=== PATIENT | female | born 1980 | race Caucasian/White ===

== ENCOUNTER 2020-05-09 11:18 | Outpatient (CLI) | payer OTHER, SELFPAY ==
--- NOTE | ~2020-05-09 | XR_ITS ---
EXAMINATION: XR wrist RT min 3V EXAM DATE: 05/09/2020 11:42 INDICATION: No known recent injury provided at this time. Pain of the right wrist. TECHNIQUE: Right wrist frontal, frontal with ulnar deviation, oblique and lateral projections obtain ed and reviewed. There is no prior study for comparison. FINDINGS: Right wrist scapholunate joint space is maintained. There are no acute fractures or disloca tions identified. There is no subcutaneous gas. The soft tissue is unremarkable. There are no rad iopaque foreign bodies. IMPRESSION: 1. Unremarkable XR wrist RT min 3V exam. Reviewed, dictated and finalized at location A. ROLLING COORDINATOR
== END 2020-05-09 11:19 | disposition home or self-care (01) ==
PROVIDERS: PCP Nurse Practitioner Family; Visit Provider Nurse Practitioner Family
DX: M25.539 Pain in unspecified wrist (principal)
CPT/HCPCS: 73110

== ENCOUNTER 2023-05-01 09:51 | Outpatient (CLI) | payer BC, SELFPAY ==
[2023-05-01 11:16] LABS: Basophils Percent Auto 0.4 % (0.2-1.2); Eosinophils Absolute Auto 0.1 K/mm3 (0-0.3); Hematocrit 43.7 % (37.0-47.0); Hemoglobin 14.1 g/dL (12.0-15.0); Immature Granulocyte Absolute 0.05 K/mm3 (0.00-0.031); Immature Granulocyte Percent A 0.5 % (0-0.5); Lymphocytes Absolute Auto 1.58 K/mm3 (0.9-3.2); Lymphocytes Percent Auto 15.5 % (18.3-44.2); Mean Corpuscular HGB Conc 32.3 g/dl (32-36); Mean Corpuscular Hemoglobin 29.9 pg (26-34); Mean Corpuscular Volume 92.8 fl (80-100); Mean Platelet Volume 10.8 fl (7.4-10.4); Monocytes Absolute Auto 0.6 K/mm3 (0.1-0.6); Monocytes Percent Auto 6.1 % (2.6-8.5); Neutrophils Absolute Auto 7.8 K/mm3 (1.3-6.7); Neutrophils Percent Auto 76.5 % (45.5-73.1); Platelet Count Result 340 k/mm3 (150-375); Red Blood Count 4.71 M/mm3 (4.2-5.4); Red Cell Distribution Width 12.1 % (11.5-14.5); White Blood Count 10.2 K/mm3 (4.5-10.0)
[2023-05-01 11:27] LABS: Glucose 1 Hour PP 50gm Dose 296 mg/dL
[2023-05-01 11:49] LABS: Hemoglobin A1C 9.4 % (<5.7)
[2023-05-01 12:06] LABS: HIV 1/2 Ab P24 Ag Result Negative (Negative)
[2023-05-01 12:21] LABS: Hepatitis B Surface Antigen Negative (Negative); Rubella IgG Antibody 15.6 IU/ML
[2023-05-02 12:59] LABS: Rapid Plasma Reagin Non-Reactive (NonReactive)
[2023-05-03 18:03] LABS: CMV IgG Antibody <0.60 U/mL (<0.60)
== END 2023-05-01 09:52 | disposition home or self-care (01) ==
LOC: ANHLAB 09:52
PROVIDERS: PCP Nurse Practitioner Family; Visit Provider Obstetrics & Gynecology
DX: R73.09 Other abnormal glucose (principal); E66.9 Obesity, unspecified; N94.89 Other specified conditions associated with female genital organs and menstrual cycle
CPT/HCPCS: 36415; 82947; 83036; 84443; 84702; 85025; 86592; 86644; 86703; 86747; 86762; 86787; 86900; 86901; 87086; 87340; G0432

== ENCOUNTER 2023-05-31 13:39 | Outpatient (CLI) | payer BC, SELFPAY ==
[2023-05-31 14:38] LABS: Alanine Aminotransferase 20 U/L (6-35); Alkaline Phosphatase 48 U/L (38-126); Anion Gap 7 mmol/L (8-16); Aspartate Amino Transferase 25 U/L (14-36); Bilirubin,Total 0.3 mg/dL (0.2-1.3); Blood Urea Nitrogen 11 mg/dL (7-17); Calcium 9.1 mg/dL (8.4-10.2); Carbon Dioxide 22 mmol/L (22-30); Chloride 103 mmol/L (98-107); Estimated Glomerular Filt Rate > 60; Glucose 130 mg/dL (65-110); Potassium 3.9 mmol/L (3.4-5.0); Sodium 132 mmol/L (137-145)
[2023-05-31 15:00] LABS: Creatinine Urine 97.7 mg/dL
[2023-05-31 15:09] LABS: Total Protein Urine Random < 5 mg/dL
== END 2023-05-31 13:40 | disposition home or self-care (01) ==
LOC: ANHLAB 13:41
PROVIDERS: PCP Nurse Practitioner Family; Visit Provider Obstetrics & Gynecology
DX: O24.919 Unspecified diabetes mellitus in pregnancy, unspecified trimester (principal); Z3A.00 Weeks of gestation of pregnancy not specified
CPT/HCPCS: 36415; 80053; 81050; 82570; 84156; 84443

== ENCOUNTER 2023-07-08 07:29 | Outpatient (CLI) | payer BC, SELFPAY ==
[2023-07-08 12:19] LABS: Total Volume 24 Hour Urine 2150 ml
[2023-07-08 12:30] LABS: Total Protein Urine 24 Hr 193 mg/24hr (28-141); Total Protein Urine Random 9 mg/dL
[2023-07-08 12:33] LABS: Creatinine 24 Hour Urine 1.5 gm/24 (0.8-1.8); Creatinine Urine 72.1 mg/dL
== END 2023-07-08 07:30 | disposition home or self-care (01) ==
LOC: ANHLAB 07:30
PROVIDERS: PCP Nurse Practitioner Family; Visit Provider Obstetrics & Gynecology
DX: Z34.90 Encounter for supervision of normal pregnancy, unspecified, unspecified trimester (principal)
CPT/HCPCS: 81050; 82570; 84156

== ENCOUNTER 2023-08-23 07:21 | Outpatient (CLI) | payer BC, SELFPAY ==
[2023-08-23 08:03] LABS: Hematocrit 34.8 % (37.0-47.0); Hemoglobin 11.3 g/dL (12.0-15.0); Mean Corpuscular HGB Conc 32.5 g/dl (32-36); Mean Corpuscular Hemoglobin 29.9 pg (26-34); Mean Corpuscular Volume 92.1 fl (80-100); Mean Platelet Volume 9.9 fl (7.4-10.4); Platelet Count Result 331 k/mm3 (150-375); Red Blood Count 3.78 M/mm3 (4.2-5.4); Red Cell Distribution Width 12.6 % (11.5-14.5); White Blood Count 11.5 K/mm3 (4.5-10.0)
[2023-08-23 09:12] LABS: HIV 1/2 Ab P24 Ag Result Negative (Negative)
[2023-08-23 17:02] LABS: Rapid Plasma Reagin Non-Reactive (NonReactive)
== END 2023-08-23 07:22 | disposition home or self-care (01) ==
LOC: ANHLAB 07:22
PROVIDERS: PCP Nurse Practitioner Family; Visit Provider Student in an Organized Health Care Education/Training Program
DX: O09.529 Supervision of elderly multigravida, unspecified trimester (principal)
CPT/HCPCS: 36415; 85027; 86592; 86703; G0432

== ENCOUNTER 2023-10-18 08:57 | Outpatient (CLI) | payer BC, SELFPAY ==
[2023-10-18 20:12] LABS: Hemoglobin A1C 5.3 % (<5.7)
== END 2023-10-18 08:58 | disposition home or self-care (01) ==
LOC: ANHLAB 08:59
PROVIDERS: PCP Nurse Practitioner Family; Referring Provider Obstetrics & Gynecology; Visit Provider Obstetrics & Gynecology
DX: O24.919 Unspecified diabetes mellitus in pregnancy, unspecified trimester (principal); Z3A.00 Weeks of gestation of pregnancy not specified
CPT/HCPCS: 36415; 83036; 86850

== ENCOUNTER 2023-10-24 16:08 | Outpatient (RCR) | payer BC, SELFPAY ==
[2023-09-23 08:56] VITALS: BP 114/60; PULSE 91
[2023-09-26 16:53] VITALS: BP 111/63; PULSE 101
[2023-09-30 08:02] VITALS: BP 100/54; PULSE 86
[2023-10-03 17:03] VITALS: BP 118/51; PULSE 92
[2023-10-07 08:23] VITALS: BP 110/56; PULSE 87
[2023-10-10 16:51] VITALS: BP 116/62; PULSE 95
[2023-10-14 09:06] VITALS: BP 113/61; PULSE 97
[2023-10-17 17:02] VITALS: BP 115/58; PULSE 95
[2023-10-21 08:30] VITALS: BP 120/56; PULSE 95
--- NOTE | ~2023-10-24 | US_ITS ---
EXAMINATION: US OB BPP wo non-stress DATE: 09/30/2023 08:56 INDICATION: Gestational diabetes TECHNIQUE: Real-time pelvic ultrasound was performed. The interpreting radiologist was not present fo r the study. COMPARISON: None. FINDINGS: There is a single living fetus in vertex presentation. The placenta is anterior. cardiac activ ity and movement are demonstrated. heart rate is 152 beats per minute (bpm). Biophysical profile performed by the technologist: breathing (30 sec sustained breathing in 30 minutes): 2 out of 2 movement (3 gross body movements in 30 minutes): 2 out of 2 tone (one episode of eeqcclz-uyulizctt-ydhksuk limb movement): 2 out of 2 Amniotic fluid pocket (2 cm): 2 out of 2 Total score: 8 out of 8 IMPRESSION: 1. Single living intrauterine in vertex presentation with heart rate of 152 bpm. 2. Normal placenta. 3. Biophysical profile 8 out of 8. Reviewed, dictated and finalized at location B.
--- NOTE | ~2023-10-24 | US_ITS ---
EXAMINATION: US OB BPP wo non-stress DATE: 10/17/2023 17:08 INDICATION: Gestational diabetes. Third trimester. TECHNIQUE: Real-time pelvic ultrasound was performed. COMPARISON: Ultrasound 10/14/2023 FINDINGS: There is a single living fetus in vertex presentation. The placenta is anterior. heart rate is 157 beats per minute (bpm). The deepest vertical pocket is 4.9 cm, which is normal. Biophysical profile performed by the technologist: breathing (30 sec sustained breathing in 30 minutes): 2 out of 2 movement (3 gross body movements in 30 minutes): 2 out of 2 tone (one episode of xepivdj-wjodhrbsi-gbsreij limb movement): 2 out of 2 Amniotic fluid pocket (2 cm): 2 out of 2 Total score: 8 out of 8 IMPRESSION: 1. Single living fetus in vertex presentation. 2. Biophysical profile 8 out of 8. Reviewed, dictated and finalized at location A.
--- NOTE | ~2023-10-24 | US_ITS ---
EXAMINATION: US OB BPP wo non-stress DATE: 09/23/2023 09:12 INDICATION: Maternal gestational diabetes during third trimester TECHNIQUE: Real-time pelvic ultrasound was performed. The interpreting radiologist was not present fo r the study. COMPARISON: None. FINDINGS: There is a single living fetus in vertex presentation. The placenta is anterior. heart rate is 173 beats per minute (bpm). Biophysical profile performed by the technologist: breathing (30 sec sustained breathing in 30 minutes): 2 out of 2 movement (3 gross body movements in 30 minutes): 2 out of 2 tone (one episode of xvniyzk-jhbygtvmx-owtkwjj limb movement): 2 out of 2 Amniotic fluid pocket (2 cm): 2 out of 2 Total score: 8 out of 8 IMPRESSION: 1. Single living fetus in vertex presentation with heart rate of 173 bpm. 2. Biophysical profile 8 out of 8. Reviewed, dictated and finalized at location A.
--- NOTE | ~2023-10-24 | US_ITS ---
EXAMINATION: US OB BPP wo non-stress DATE: 10/07/2023 08:26 INDICATION: Gestational diabetes. Third trimester. TECHNIQUE: Real-time pelvic ultrasound was performed. COMPARISON: Ultrasound 09/30/2023 FINDINGS: There is a single living fetus in vertex presentation. The placenta is anterior. heart rate is 134 beats per minute (bpm). The deepest vertical pocket is 5.2 cm, which is normal. Biophysical profile performed by the technologist: breathing (30 sec sustained breathing in 30 minutes): 2 out of 2 movement (3 gross body movements in 30 minutes): 2 out of 2 tone (one episode of irxzsva-aycradlxq-fvupggq limb movement): 2 out of 2 Amniotic fluid pocket (2 cm): 2 out of 2 Total score: 8 out of 8 IMPRESSION: 1. Single living fetus in vertex presentation. 2. Biophysical profile 8 out of 8. Reviewed, dictated and finalized at location A.
--- NOTE | ~2023-10-24 | US_ITS ---
EXAMINATION: US OB BPP wo non-stress DATE: 10/21/2023 08:38 INDICATION: Gestational diabetes. Third trimester. TECHNIQUE: Real-time pelvic ultrasound was performed. COMPARISON: Ultrasound 10/17/2023 FINDINGS: There is a single living fetus in vertex presentation. The placenta is anterior. heart rate is 162 beats per minute (bpm). Biophysical profile performed by the technologist: breathing (30 sec sustained breathing in 30 minutes): 2 out of 2 movement (3 gross body movements in 30 minutes): 2 out of 2 tone (one episode of cblvmqh-olxibwvkr-wjfldkp limb movement): 2 out of 2 Amniotic fluid pocket (2 cm): 2 out of 2 Total score: 8 out of 8 IMPRESSION: 1. Single living fetus in vertex presentation. 2. Biophysical profile 8 out of 8. Reviewed, dictated and finalized at location A.
--- NOTE | ~2023-10-24 | US_ITS ---
LIMITED OBSTETRIC ULTRASOUND/BIOPHYSICAL PROFILE Ordering provider: Neda Del Toro MD History: . BPP for Type2 DM, AMA . Comparison: None. FINDINGS: PRESENTATION: Vertex. Longitudinal lie. PLACENTAL LOCATION: Anterior. No previa. HEART RATE: 146 bpm (normal is between 110 to 160 bpm). AMNIOTIC FLUID INDEX: Subjectively normal. Largest vertical pocket is 5.7 cm. . OTHER: Maternal ovaries not visualized. SCORE: breathing movements: 2 movements: 0 tone: 2 Amniotic fluid volume: 2 Total: 6 IMPRESSION: biophysical profile is 6 out of 8. Reviewed, dictated and finalized at location A.
[2023-10-24 16:47] VITALS: BP 126/71; PULSE 103
== END 2023-11-04 10:41 | disposition home or self-care (01) ==
LOC: ANHOBOP 16:08
PROVIDERS: PCP Nurse Practitioner Family; Visit Provider Obstetrics & Gynecology
DX: O24.419 Gestational diabetes mellitus in pregnancy, unspecified control (principal); Z3A.32 32 weeks gestation of pregnancy; Z3A.33 33 weeks gestation of pregnancy; Z3A.34 34 weeks gestation of pregnancy; Z3A.35 35 weeks gestation of pregnancy; Z3A.36 36 weeks gestation of pregnancy; Z3A.37 37 weeks gestation of pregnancy
CPT/HCPCS: 59025; 76819

== ENCOUNTER 2023-10-28 05:57 | Inpatient (IN) | payer BC, SELFPAY ==
[2023-10-28] VITALS (159 sets, daily range): BP systolic 67–127; BP diastolic 36–100; PULSE 76–169; TEMP 36.4–37.1; O2SAT 96–100; BMI 37.0
[2023-10-28 06:32] LABS: Basophils Percent Auto 0.2 % (0.2-1.2); Eosinophils Absolute Auto 0.1 K/mm3 (0-0.3); Eosinophils Percent Auto 1.1 % (0-4.4); Hematocrit 32.7 % (37.0-47.0); Hemoglobin 10.7 g/dL (12.0-15.0); Immature Granulocyte Absolute 0.07 K/mm3 (0.00-0.031); Immature Granulocyte Percent A 0.6 % (0-0.5); Lymphocytes Absolute Auto 1.49 K/mm3 (0.9-3.2); Lymphocytes Percent Auto 13.5 % (18.3-44.2); Mean Corpuscular HGB Conc 32.7 g/dl (32-36); Mean Corpuscular Hemoglobin 28.9 pg (26-34); Mean Corpuscular Volume 88.4 fl (80-100); Mean Platelet Volume 10.2 fl (7.4-10.4); Monocytes Percent Auto 8.6 % (2.6-8.5); Neutrophils Absolute Auto 8.4 K/mm3 (1.3-6.7); Platelet Count Result 307 k/mm3 (150-375); Red Cell Distribution Width 13.2 % (11.5-14.5); White Blood Count 11.1 K/mm3 (4.5-10.0)
[2023-10-28] MEDS: LACTATED RINGERS 1,000 ML 125 ML IV CONT ×2 (06:36→14:31)
[2023-10-28] MEDS: AMPICILLIN 2 GM/NS 100 ML 2 GM/100 ML BAG IVPB (06:39)
[2023-10-28] MEDS: OXYTOCIN 30 UNITS/NS 500 ML 30 UNITS/500 ML BAG IV CONT ×2 (06:49→19:16)
[2023-10-28 06:51] LABS: Glucose Point of Care 79 mg/dl (65-105)
[2023-10-28 07:20] LABS: HIV 1/2 Ab P24 Ag Result Negative (Negative)
--- NOTE | 2023-10-28 07:26 | WPDANESEPP ---
Anes - Eval Pre Procedure Procedure: Labor epidural Date/Time: 10/28/23 07:26 Surgeon: Alverto Preop Diagnosis: Pain during labor Pre Op Diagnosis: IOL Patient Data Age: 43 Gender: F Height: Weight: Last Vital Signs Temp 37.0 C 10/28/23 07:00 Pulse 91 10/28/23 07:05 BP 117/63 10/28/23 07:05 Allergies Allergy/AdvReac Type Severity Reaction Status Date / Time No Known Allergies Allergy Verified 10/25/23 08:18 Home Medications Medication Instructions Recorded Confirmed Type famotidine 20 mg tablet (Pepcid) 20 mg PO BID PRN Heartburn 05/09/20 10/28/23 History glucagon 3 mg/actuation nasal 3 mg intranasal ONCE PRN low blood 05/29/23 10/28/23 History spray (Baqsimi) sugar insulin lispro 100 unit/mL 12 unit subcut QACDINNER 06/28/23 10/28/23 History subcutaneous half-unit pen aspirin 81 mg chewable tablet 162 mg PO DAILY 10/03/23 10/28/23 History cholecalciferol (vitamin D3) 25 25 mcg PO HS 10/03/23 10/28/23 History mcg (1,000 unit) tablet (Vitamin D3) insulin glargine-yfgn 100 unit/mL 88 unit subcut BID 10/03/23 10/28/23 History (3 mL) subcutaneous pen (Semglee (insulin glargine-yfgn) Pen) insulin lispro 100 unit/mL 20 unit subcut QACBREAK 10/03/23 10/28/23 History subcutaneous pen insulin lispro 100 unit/mL 20 unit subcut QACLUNCH 10/03/23 10/28/23 History subcutaneous pen vit no.95-ferrous 1 tablet PO HS 10/03/23 10/28/23 History fumarate 28 mg-folic acid 800 mcg tablet () doxylamine succinate 25 mg tablet 25 mg PO HS PRN Sleep 10/28/23 10/28/23 History (Unisom (doxylamine)) Laboratory Tests 10/28/23 10/28/23 06:22 06:31 WBC 11.1 H K/mm3 (4.5-10.0) RBC 3.70 L M/mm3 (4.2-5.4) Hgb 10.7 L g/dL (12.0-15.0) Hct 32.7 L % (37.0-47.0) MCV 88.4 fl (80-100) MCH 28.9 pg (26-34) MCHC 32.7 g/dl (32-36) RDW 13.2 % (11.5-14.5) Plt Count 307 k/mm3 (150-375) MPV 10.2 fl (7.4-10.4) Immature Gran % (Auto) 0.6 H % (0-0.5) Neut % (Auto) 76.0 H % (45.5-73.1) Lymph % (Auto) 13.5 L % (18.3-44.2) [place] % (Auto) 8.6 H % (2.6-8.5) Eos % (Auto) 1.1 % (0-4.4) Baso % (Auto) 0.2 % (0.2-1.2) Lymph # (Auto) 1.49 K/mm3 (0.9-3.2) [place] # (Auto) 1.0 H K/mm3 (0.1-0.6) Eos # (Auto) 0.1 K/mm3 (0-0.3) Baso # (Auto) 0.0 K/mm3 (0.0-0.1) Abs Immat Gran (auto) 0.07 H K/mm3 (0.00-0.031) Absolute Neuts (auto) 8.4 H K/mm3 (1.3-6.7) Absolute Nucleated RBC 0.000 K/mm3 (0.0-0.012) Nucleated RBC % 0.0 % (0.0-0.2) POC Capillary Glucose 79 mg/dl (65-105) RPR Pending HIV 1&2 Ab/P24 Ag 4thGn Negative (Negative) Blood Type A Positive Antibody Screen Pending Patient hx anesthesia problems: none Family hx anesthesia problems: none Results Review: All pre-operative results and documents have been reviewed as part of the pre-operative evaluation. [facility], [facility] Past Medical History Medical History Back pain BMI 35.0-35.9,adult Elevated glucose level Encounter for wellness examination GERD (gastroesophageal reflux disease) Herpes Migraines Nexplanon insertion 01/04/2020 Vitamin D deficiency Wrist pain Family History Family History Father AA (alcohol abuse) Hypertension Mother AA (alcohol abuse) Asthma Grandparent Diabetes mellitus Heart disease Cerebrovascular accident Grandparent Depression Anxiety Social History Social History Smoking status: Never smoker Alcohol intake: never Substance use: never Substance use type: does not use Lack of Transportation: No Lack of Food: Never True Current Housing: I Have Housing
--- NOTE | 2023-10-28 07:31 | LDADM ---
This patient, Abbie lBand, was admitted to Labor/Delivery/Recovery 104 on 10/28/23 at 05:57. Plans for labor, pain management and were discussed with patient. Patient/family oriented to hospital policies and general routines including ID bracelet, bed and alarms, visiting hours, pain management, procedures, bathroom and other care routines, personal items, smoking policy, room service/diet and guest tray routines, security routines, and visiting hours. Patient/Family are encouraged to report perceived risks to care and to ask questions if they do not understand what they are told or what they should do. See OBIX for further documentation.
--- NOTE | 2023-10-28 08:10 | PM.IMHP ---
H&P: HPI History of Present Illness Date/Time: 10/28/23 07:27 Chief Complaint: Medical induction of labor Narrative: Abbie is a 43yo @ 37.4wks admitted for medical induction of labor. She was diagnosed with class B DM in . She has been insulin dependent and has continued to require increasing levels of insulin at every MFM appointment. She has been undergoing twice weekly testing. She reports good movement. No VB or LOF. BS 79 this AM. Her is complicated by: - AMA-- MFM referral; normal FISH on amnio, ASA 162mg - Class B DM -- a1c 9.4 (04/2023) --> 5.3 (10/2023) - Insulin managed by [facility]; glargine 88u BID, Lispro /u TIDAC - testing/growth scans - echo: normal - h/o migraines - GBS positive Review of Systems Constitutional: Constitutional: Denies chills, Denies fever(s) and Denies headache(s) Eyes: Eyes: Denies change in vision ENT: Denies headache(s) Cardiovascular: Cardiovascular: Denies chest pain and Denies dyspnea Respiratory: Respiratory: Denies dyspnea Genitourinary: Genitourinary: Denies abnormal vaginal bleeding and Denies vaginal discharge Neurologic: Denies headache(s) Psychiatric: Psychiatric: Denies anxiety and Denies depression [facility] Past Medical History Medical History Back pain BMI 35.0-35.9,adult Elevated glucose level Encounter for wellness examination GERD (gastroesophageal reflux disease) Herpes Migraines Nexplanon insertion 01/04/2020 Vitamin D deficiency Wrist pain Family History Family History Father AA (alcohol abuse) Hypertension Mother AA (alcohol abuse) Asthma Grandparent Diabetes mellitus Heart disease Cerebrovascular accident Grandparent Depression Anxiety Social History Social History Smoking status: Never smoker Second hand tobacco smoke exposure: No Alcohol intake: never Substance use: never Substance use type: does not use Do You Feel Safe in your Home?: Yes Lack of Transportation: No Lack of Food: Never True Current Housing: I Have Housing Concerned About Future Housing: No Difficulty Paying Gas/Electric Bills: No Difficulty Paying for Meds: No Currently Unemployed: No Education: Associate Degree Difficulty w/ Childcare or Family Care: No Living arrangements: with family Occupation/Education: occupation Gender identity (if verbalized by the patient): Female Sexual Orientation (if Verbalized by the Patient): Straight or Heterosexual Spiritual care concerns: No Meds Home Medications and Allergies Home Medications Medication Instructions Recorded Confirmed Type famotidine 20 mg tablet (Pepcid) 20 mg PO BID PRN Heartburn 05/09/20 10/28/23 History glucagon 3 mg/actuation nasal 3 mg intranasal ONCE PRN low blood 05/29/23 10/28/23 History spray (Baqsimi) sugar insulin lispro 100 unit/mL 12 unit subcut QACDINNER 06/28/23 10/28/23 History subcutaneous half-unit pen aspirin 81 mg chewable tablet 162 mg PO DAILY 10/03/23 10/28/23 History cholecalciferol (vitamin D3) 25 25 mcg PO HS 10/03/23 10/28/23 History mcg (1,000 unit) tablet (Vitamin D3) insulin glargine-yfgn 100 unit/mL 88 unit subcut BID 10/03/23 10/28/23 History (3 mL) subcutaneous pen (Semglee (insulin glargine-yfgn) Pen) insulin lispro 100 unit/mL 20 unit subcut QACBREAK 10/03/23 10/28/23 History subcutaneous pen insulin lispro 100 unit/mL 20 unit subcut QACLUNCH 10/03/23 10/28/23 History subcutaneous pen vit no.95-ferrous 1 tablet PO HS 10/03/23 10/28/23 History fumarate 28 mg-folic acid 800 mcg tablet () doxylamine succinate 25 mg tablet 25 mg PO HS PRN Sleep 10/28/23 10/28/23 History (Unisom (doxylamine)) Allergies Allergy/AdvRea
[2023-10-28] MEDS: INSULIN ASPART (*BKC) 100 UNITS/ML 20 UNITS SUB-Q ×2 (09:28→12:35)
[2023-10-28] MEDS: AMPICILLIN 1 GM/NS 50 ML 1 GM/50 ML BAG IVPB ×3 (10:29→18:24)
[2023-10-28 11:09] LABS: Glucose Point of Care 84 mg/dl (65-105)
--- NOTE | 2023-10-28 11:22 | PM.OBPNLAB ---
Pain Control Date/time seen: 10/28/23 11:22 Pain control: tolerating well Pelvic Exam Dilation (cm): 4 Effacement (%): 50 station: -2 Amniotic membrane status: Ruptured (AROM, clear 1115) Contractions Monitor mode: External Contraction frequency: 2 Contraction pattern: Regular Status status: Category l Assessment and Plan Pitocin rate (mU/min): 12 Plan: continuous present management Comments: TREVOR Mckenna
[2023-10-28 12:02] LABS: Glucose Point of Care 66 mg/dl (65-105)
[2023-10-28 12:22] LABS: Glucose Point of Care 71 mg/dl (65-105)
[2023-10-28 13:06] LABS: Glucose Point of Care 74 mg/dl (65-105)
[2023-10-28] MEDS: DEXTROSE 5%/0.9% SOD CHL 1,000 ML 125 ML IV CONT (13:20)
[2023-10-28 13:23] LABS: Rapid Plasma Reagin Non-Reactive (NonReactive)
[2023-10-28 14:03] LABS: Glucose Point of Care 115 mg/dl (65-105)
[2023-10-28] MEDS: ACETAMINOPHEN 500 MG TABLET 1000 MG PO (14:44)
[2023-10-28 15:02] LABS: Glucose Point of Care 104 mg/dl (65-105)
[2023-10-28 15:59] LABS: Glucose Point of Care 80 mg/dl (65-105)
--- NOTE | 2023-10-28 16:45 | PM.OBPNLAB ---
Pain Control Date/time seen: 10/28/23 16:45 Pain control: epidural Pelvic Exam Dilation (cm): 5 Effacement (%): 80 station: -2 Amniotic membrane status: Ruptured (AROM, clear 1115) Contractions Monitor mode: Internal Contraction frequency: 3 Contraction pattern: Regular Status status: Category l Assessment and Plan Pitocin rate (mU/min): 22 Assessment: induction ongoing Plan: continuous present management Comments: TREVOR Cooper
[2023-10-28] MEDS: LACTATED RINGERS 1,000 ML 999 ML IV CONT (16:52)
[2023-10-28 17:03] LABS: Glucose Point of Care 75 mg/dl (65-105)
[2023-10-28 18:04] LABS: Glucose Point of Care 85 mg/dl (65-105)
[2023-10-28 19:01] LABS: Glucose Point of Care 71 mg/dl (65-105)
[2023-10-28 20:05] LABS: Glucose Point of Care 63 mg/dl (65-105)
[2023-10-28 21:05] LABS: Glucose Point of Care 72 mg/dl (65-105)
[2023-10-28] MEDS: OXYTOCIN 30 UNITS/NS 500 ML 30 UNITS/500 ML BAG 999 UNITS IV CONT (22:30)
--- NOTE | 2023-10-28 22:44 | PM.OBPRVD ---
OB - Vaginal Delivery Note Procedure Delivery date: 10/28/23 Events: Diabetes Mellitus Induction method: Per Pitocin Protocol Delivery augmentation: Rupture of Membranes Delivery monitor: External FHT and Internal Uterine Route of delivery: Laceration Description: None Specimen: Yes (placenta) Quantitative Blood Loss (ml): 400 Anesthesia type: Epidural Disposition: Floor Complications: No immediate complications [place] Baby Date of : 10/28/23 Time of : 22:18 Gestational Age by Date: 37 (.4) gender: Female Weight (pounds): 6 Weight (ounces): 0 presentation: vertex Placenta delivery description: Expressed Cord Vessel Description: 3 Vessels, Nuchal Cord (x2), Reduced and Delayed Cord Clamping score one minute: 9 score five minutes: 9 Narrative: Abbie progressed to complete dilation with strong desire to push. She pushed for approximately 4 contractions with good maternal effort. She delivered head over intact perineum. Nuchal cord x2 was noted and was easily reduced. She easily delivered the 's shoulders and body without complication. The was immediately placed skin to skin and had spontaneous cry after bulb suctioning of her mouth. Delayed cord clamping was performed. The umbilical cord was then doubly clamped and cut. A segment of cord was collected for cord gases. With Pitocin running and gentle downward traction on the cord, the placenta delivered without complication. Bimanual massage was performed and good uterine tone with minimal bleeding was noted. She was examined and no lacerations were noted. Bimanual massage was once again performed and good uterine tone with minimal bleeding was noted. Sponge, lap, instrument, and needle counts were correct at the end the procedure. Mom and baby were left bonding in the birthing suite in stable condition.
[2023-10-28 22:47] LABS: Glucose Point of Care 71 mg/dl (65-105)
[2023-10-28 23:01] LABS: Glucose Point of Care 79 mg/dl (65-105)
[2023-10-28] MEDS: OXYTOCIN 30 UNITS/NS 500 ML 30 UNITS/500 ML BAG 125 UNITS IV CONT (23:05)
[2023-10-29] VITALS (16 sets, daily range): BP systolic 105–123; BP diastolic 50–79; PULSE 71–108; RESP 16–20; TEMP 36.2–36.7; O2SAT 97–99
[2023-10-29 00:08] LABS: Glucose Point of Care 106 mg/dl (65-105)
--- NOTE | 2023-10-29 01:04 | OBPPTRN ---
Patient transferred to post room #281 via wheelchair. Support person present. Oriented to unit, room, information board, rooming in, admission packet and security measures. Patient verbalizes understanding.
[2023-10-29 02:12] LABS: Glucose Point of Care 191 mg/dl (65-105)
[2023-10-29 04:45] LABS: Glucose Point of Care 160 mg/dl (65-105)
--- NOTE | 2023-10-29 06:37 | PM.OBPNVD ---
OB - PN: Subj Subjective Date/time seen: 10/29/23 06:37 Narrative: PPD#1 Abbie reports doing well today. Her bleeding is casing cleaner. Her pain is controlled. She is tolerating regular diet, voiding, passing gas, and ambulating without issues. She is breast feeding. Has been having sugars checked; on the higher side, but had a lot of pizza after delivery. OB - PN: Obj Data Labs 10/29/23 07:46 Labs: Laboratory Results - last 24 hr 10/28/23 10/28/23 10/28/23 06:22 06:31 11:05 WBC 11.1 H RBC 3.70 L Hgb 10.7 L Hct 32.7 L MCV 88.4 MCH 28.9 MCHC 32.7 RDW 13.2 Plt Count 307 MPV 10.2 Immature Gran % (Auto) 0.6 H Neut % (Auto) 76.0 H Lymph % (Auto) 13.5 L [place] % (Auto) 8.6 H Eos % (Auto) 1.1 Baso % (Auto) 0.2 Lymph # (Auto) 1.49 [place] # (Auto) 1.0 H Eos # (Auto) 0.1 Baso # (Auto) 0.0 Abs Immat Gran (auto) 0.07 H Absolute Neuts (auto) 8.4 H Absolute Nucleated RBC 0.000 Nucleated RBC % 0.0 POC Capillary Glucose 79 84 RPR Non-reactive HIV 1&2 Ab/P24 Ag 4thGn Negative Blood Type A Positive Antibody Screen Negative 10/28/23 10/28/23 10/28/23 11:59 12:19 13:03 WBC RBC Hgb Hct MCV MCH MCHC RDW Plt Count MPV Immature Gran % (Auto) Neut % (Auto) Lymph % (Auto) [place] % (Auto) Eos % (Auto) Baso % (Auto) Lymph # (Auto) [place] # (Auto) Eos # (Auto) Baso # (Auto) Abs Immat Gran (auto) Absolute Neuts (auto) Absolute Nucleated RBC Nucleated RBC % POC Capillary Glucose 66 71 74 RPR HIV 1&2 Ab/P24 Ag 4thGn Blood Type Antibody Screen 10/28/23 10/28/23 10/28/23 14:01 14:59 15:57 WBC RBC Hgb Hct MCV MCH MCHC RDW Plt Count MPV Immature Gran % (Auto) Neut % (Auto) Lymph % (Auto) [place] % (Auto) Eos % (Auto) Baso % (Auto) Lymph # (Auto) [place] # (Auto) Eos # (Auto) Baso # (Auto) Abs Immat Gran (auto) Absolute Neuts (auto) Absolute Nucleated RBC Nucleated RBC % POC Capillary Glucose 115 H 104 80 RPR HIV 1&2 Ab/P24 Ag 4thGn Blood Type Antibody Screen 10/28/23 10/28/23 10/28/23 16:57 18:00 18:55 WBC RBC Hgb Hct MCV MCH MCHC RDW Plt Count MPV Immature Gran % (Auto) Neut % (Auto) Lymph % (Auto) [place] % (Auto) Eos % (Auto) Baso % (Auto) Lymph # (Auto) [place] # (Auto) Eos # (Auto) Baso # (Auto) Abs Immat Gran (auto) Absolute Neuts (auto) Absolute Nucleated RBC Nucleated RBC % POC Capillary Glucose 75 85 71 RPR HIV 1&2 Ab/P24 Ag 4thGn Blood Type Antibody Screen 10/28/23 10/28/23 10/28/23 20:01 21:02 22:06 WBC RBC Hgb Hct MCV MCH MCHC RDW Plt Count MPV Immature Gran % (Auto) Neut % (Auto) Lymph % (Auto) [place] % (Auto) Eos % (Auto) Baso % (Auto) Lymph # (Auto) [place] # (Auto) Eos # (Auto) Baso # (Auto) Abs Immat Gran (auto) Absolute Neuts (auto) Absolute Nucleated RBC Nucleated RBC % POC Capillary Glucose 63 L 72 71 RPR HIV 1&2 Ab/P24 Ag 4thGn Blood Type Antibody Screen 10/28/23 10/29/23 10/29/23 22:57 00:04 02:08 WBC RBC Hgb Hct MCV MCH MCHC RDW Plt Count MPV Immature Gran % (Auto) Neut % (Auto) Lymph % (Auto) [place] % (Auto) Eos % (Auto) Baso % (Auto) Lymph # (Auto) [place] # (Auto) Eos # (Auto) Baso # (Auto) Abs Immat Gran (auto) Absolute Neuts (auto) Absolute Nucleated RBC Nucleated RBC % POC Capillary Glucose 79 106 H 191 H RPR HIV 1&2 Ab/P24 Ag 4thGn Blood Type Antibody Screen 10/29/23 04:38 WBC RBC Hgb Hct MCV MCH MCHC RDW Plt Count MPV Immature Gran % (Auto) Neut % (Auto) Lymph % (Auto
[2023-10-29 07:53] LABS: Hematocrit 33.6 % (37.0-47.0); Hemoglobin 10.9 g/dL (12.0-15.0); Mean Corpuscular HGB Conc 32.4 g/dl (32-36); Mean Corpuscular Hemoglobin 29.1 pg (26-34); Mean Corpuscular Volume 89.8 fl (80-100); Mean Platelet Volume 10.1 fl (7.4-10.4); Platelet Count Result 298 k/mm3 (150-375); Red Blood Count 3.74 M/mm3 (4.2-5.4); Red Cell Distribution Width 13.2 % (11.5-14.5); White Blood Count 14.2 K/mm3 (4.5-10.0)
[2023-10-29] MEDS: IBUPROFEN 600 MG TABLET PO (07:54)
[2023-10-29] MEDS: MULTIVIT/MIN/PREN/FOL AC/IRON TABLET 1 TAB PO (07:54)
[2023-10-29] MEDS: metFORMIN HCL XR 500 MG TAB.SR.24H PO (07:55)
[2023-10-29] MEDS: LANOLIN (LANSINOH) 7.5 GM CREAM 1 APPLIC TOPICAL (07:55)
[2023-10-29 10:20] LABS: Glucose Point of Care 132 mg/dl (65-105)
--- NOTE | 2023-10-29 10:38 | WPDANLDPN2 ---
Anes-Prog Note L&D Date/Time: 10/29/23 10:38 Comfortable throughout: labor and delivery Neuraxial method: epidural Epidural/Spinal procedure site: clean & non-tender Neuro status: Neuro function grossly intact. Cardiovascular status: normal Respiratory status: normal Airway patency: baseline Mental status: baseline Post-Op hydration status: normal Vital Signs: Last Vital Signs Temp 36.2 C L 10/29/23 08:00 Pulse 82 10/29/23 08:00 Resp 18 10/29/23 08:00 BP 116/69 10/29/23 08:00 Pulse Ox 99 10/29/23 08:00 O2 Del Method Room Air 10/28/23 07:31 Pain score (VAS): /10 I/O: Intake & Output 10/28/23 10/29/23 10/29/23 23:59 07:59 15:59 Intake Total 883.2 1000 240 Output Total 75 Balance 883.2 925 240 Post-procedural complaints: none Patient feedback: Patient satisfied with anesthetic care.
[2023-10-29 13:56] LABS: Glucose Point of Care 129 mg/dl (65-105)
--- NOTE | 2023-10-29 15:44 | PC.NURSE ---
1500. Met with patient to assess and discuss needs related to feeding. Mother states it is her intention to combo feed . Encouraged mother to breastfeed infant every 2-3 hours, watching for early feeding cues. If infant is sleepy, unwrap and place baby skin to skin. Discussed signs that is effectively , i.e. sufficient voids and stools, jaundice within normal limits, <10% weight loss from . Mother educated on milk production, supply and demand, and expectations for in the immediate period. Encouraged feeding on demand and feeding durations of 15 minutes or greater. Observed mother latching infant to the left breast in football position. Infant was not able to maintain an appropriate latch,infant not opening her mouth wide enough when she is brought close to the nipple. Baby very sleepy and refuses to suck when she did get the nipple in her mouth. Encouraged mother to do S2S and watch for early feeding cues and keep attempting at the breast. Mother is also pumping every 3 hours to stimulate and protect her milk supply. Mom had expressed 5 mls of EBM, so we fed that to baby in a nipple. Mom encouraged to call out for infants next feeding and we will attempt to get baby on the breast again. Mother voiced understanding of the education shared. resources provided including the Mom and Baby Guide. Mother verbalized understanding. Updated patient?s primary RN with education provided.
[2023-10-29 19:16] LABS: Glucose Point of Care 157 mg/dl (65-105)
[2023-10-29] MEDS: INSULIN GLARGINE (*BKC) 100 UNITS/ML 10 UNITS SUB-Q (21:38)
--- NOTE | 2023-10-30 07:15 | PM.OBDSVD ---
DS: Admitting Diagnosis Discharge Date 10/30/23 Admitting Diagnosis Class B diabetes AMA Induction of labor due to uncontrolled DM DS: Discharge Diagnosis Discharge Diagnosis (1) Normal vaginal delivery of second : Code(s): O80 - Encounter for full-term uncomplicated delivery Status: Acute (2) Modified White class B pregestational diabetes mellitus: Code(s): O24.319 - Unspecified pre-existing diabetes mellitus in , unspecified trimester Status: Acute OB - DS: Summary OB Procedures : Amniocentesis, NST and Ultrasound OB Procedures Intrapartum: Spontaneous Vag Delivery OB Procedures: : None Peripartum Data Infant Delivery Method: Natural Vaginal Laceration Description: None complications: none 1: Gender: Female Disposition of : home Status at Discharge Functional status at discharge: independent ambulation Overall status at discharge: patient is back to baseline Time Spent with Patient Time attestation: Total time spent providing and/or coordinating discharge services: Exam Const: General: cooperative, healthy appearing, comfortable and no acute distress Nutritional Appearance: obese Orientation/consciousness: patient oriented x3 Resp: Effort & Inspection: normal respiratory effort Auscultation: clear to auscultation bilaterally Cardio: Rate: regular rate GI: Inspection: non-distended GI Palp: No abdominal tenderness and Yes Soft to palpation Auscultation: normal bowel sounds : Other: fundus firm Skin: General skin exam: normal color Neuro: General: patient oriented x3 Extrem: General: normal to inspection Psych: Appearance: grossly normal Affect: normal affect Attitude: cooperative DS: Data Data Completed and Pending Pending studies at discharge: Pending at discharge 10/28/23 23:26 Surgical [PTH] Routine Labs on day of discharge: Labs from last 24 hours 10/29/23 10/29/23 10/29/23 19:12 13:52 10:12 WBC RBC Hgb Hct MCV MCH MCHC RDW Plt Count MPV POC Capillary Glucose 157 H 129 H 132 H 10/29/23 10/29/23 10/29/23 07:46 04:38 02:08 WBC 14.2 H RBC 3.74 L Hgb 10.9 L Hct 33.6 L MCV 89.8 MCH 29.1 MCHC 32.4 RDW 13.2 Plt Count 298 MPV 10.1 POC Capillary Glucose 160 H 191 H 10/29/23 10/28/23 10/28/23 00:04 22:57 22:06 WBC RBC Hgb Hct MCV MCH MCHC RDW Plt Count MPV POC Capillary Glucose 106 H 79 71 10/28/23 10/28/23 21:02 20:01 WBC RBC Hgb Hct MCV MCH MCHC RDW Plt Count MPV POC Capillary Glucose 72 63 L Discharge Plan Discharge Attending physician on discharge: Neda Del Toro Discharging Clinician: Neda Del Toro Anticipated Discharge Date/Time: 10/30/23 16:00 Patient Disposition: Home, Self-Care Activity: may shower and pelvic rest Diet: diabetic Patient Instructions: Vaginal Delivery (DC) Stand Alone Forms: General Discharge Information Follow-up/Referrals: Neda Del Toro MD [Physician] - 4 Weeks Discharge Medications: New acetaminophen 500 mg tablet 1,000 mg PO TID Qty: 60 0RF ibuprofen 800 mg tablet 800 mg PO TID Qty: 30 0RF docusate sodium [Colace] 100 mg capsule 100 mg PO BID Qty: 90 0RF metformin 500 mg tablet extended release 24 hr 500 mg PO DAILY Qty: 90 1RF Continued famotidine [Pepcid] 20 mg tablet 20 mg PO BID PRN (Reason: Heartburn) Baqsimi 3 mg/actuation spray,non-aerosol 3 mg intranasal ONCE PRN (Reason: low blood sugar) Patient Comments: Pt states has not taken at this point Rx Instructions: as a single dose cholecalciferol (vitamin D3) [Vitamin D3] 25 mcg (1,000 unit) Tablet 25 mcg PO HS PNV cmb#95-ferrous fumarate-FA [] 28 mg iron- 800 mcg Tablet 1 tablet PO HS Changed in
[2023-10-30 07:25] VITALS: BP 120/63; PULSE 80; RESP 18; TEMP 36.4; O2SAT 100
--- NOTE | 2023-10-30 08:25 | PC.NURSE ---
Consulted with patient to assess needs related to . Mother expresses that she has been pumping and feeding along with supplementing with Similac formula but she would like to put infant to breast. This RN assisted mother with latching infant with nipple shield in place. latched to the left breast in football position. Mother reported no pain with latch. This RN remained at bedside for entirety of attempt (approx. 5 minutes) and mother decided she was going to formula feed and try again with next feeding. Discussed the need to pump after attempts to maintain milk supply. Mother denies questions related to the pump she is currently using. Mother stated that she plans to use her personal pump once she is home. Instructed mother to bring breastrpump to follow up visit if she needs help setting up the pump or has any questions. is unable to bring the pump today and patient is being discharged this afternoon. Mother voiced understanding of the education shared, to call for assistance if the does not latch or if there is discomfort with . Reported to the Primary RN.
[2023-10-30] MEDS: IBUPROFEN 600 MG TABLET PO (08:31)
[2023-10-30] MEDS: MULTIVIT/MIN/PREN/FOL AC/IRON TABLET 1 TAB PO (08:31)
[2023-10-30] MEDS: metFORMIN HCL XR 500 MG TAB.SR.24H PO (08:31)
[2023-10-30 10:19] LABS: Glucose Point of Care 201 mg/dl (65-105)
[2023-10-30 12:12] LABS: Glucose Point of Care 132 mg/dl (65-105)
--- NOTE | 2023-10-30 13:20 | PC.NURSE ---
Patient viewed the discharge video Mother & Baby Care, The First Two Weeks . Patient was given the opportunity and encouraged to ask questions. Patient verbalized understanding of information shared and has been given the mother/baby guide for home reference.
[2023-10-31 11:21] VITALS: BP 130/59; PULSE 76; RESP 18; TEMP 36.7; O2SAT 98
== END 2023-10-30 14:20 | disposition home or self-care (01) | DRG 806 ==
LOC: ANHLDR 05:59 → ANHOB2 10-29 01:07
PROVIDERS: Admitting Provider Obstetrics & Gynecology; PCP Nurse Practitioner Family; Visit Provider Obstetrics & Gynecology
DX: O24.12 Pre-existing type 2 diabetes mellitus, in childbirth (principal); O98.52 Other viral diseases complicating childbirth; Z37.0 Single live birth; O99.824 Streptococcus B carrier state complicating childbirth; B00.9 Herpesviral infection, unspecified; O99.62 Diseases of the digestive system complicating childbirth; O69.81X0 Labor and delivery complicated by cord around neck, without compression, not applicable or unspecified; Z3A.37 37 weeks gestation of pregnancy; Z79.4 Long term (current) use of insulin; K21.9 Gastro-esophageal reflux disease without esophagitis; O99.284 Endocrine, nutritional and metabolic diseases complicating childbirth; E55.9 Vitamin D deficiency, unspecified
CPT/HCPCS: 36415; 82948; 85025; 85027; 86592; 86703; 86850; 86900; 86901; 88307; A9270; G0432; J0290; J1815; J2590; J2795; J7042; J7120

== ENCOUNTER 2024-05-29 10:52 | Emergency (ER) | payer OTHER, BC, SELFPAY ==
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
--- NOTE | 2024-05-29 11:22 | PC.NURSE ---
patient denies - has a 7 month old baby and implanted control. patient providing urine sample at this time for bedside preg test prior to any imaging done today
[2024-05-29 11:53] LABS: BEDSIDEPREGUCG Negative (Negative)
--- OUTSIDE RECORDS SUMMARY | 2024-05-29 12:03 | XMS_ITS | Clinical Summary ---
Author Organization [facility] Address [address] [place] [address] Care Team Providers Care Manager Appointment Name Role Phone Unavailable Primary Care Provider Unavailabl e Source Comments [facility],non-owned Affiliates and Associated Physician Practices is amultiple site organization consisting of ambulatory clinics and hospital sitesin [place], [place], [place] and [place]. This disclosure is being madepursuant to the Care Everywhere program and may not contain all information available regarding this patient. Last updated 17.[facility] Allergies No known active allergies Medications * Be aware that medications may not be up to date on this document. Alwaysverify current medications with the patient. Medication Sig Dispensed Refills Start Date End Date Status Glucagon (Baqsimi One Pack) 3 MG/DOSE POWD [place] 3 mg into the nose as needed For emergency use only if unable to treat low blood sugar with food or drink 1 Each 1 05/15/2023 Active Continuous Blood Gluc Sensor (Dexcom G7 Sensor) MISCIndications:Typ e 2 diabetes mellitus affecting in second trimester, antepartum (HCC) Use 1 Each as directed 3 Each 11 05/22/2023 Active Additional Information Patient not taking.Reported on 05/29/2023 Vit-DSS-Fe Fum-FA ( vitamin with iron) tabletIndications:P regnancy Take 1 (one) tablet by mouth once daily Reasons: Active ASPIRIN 81 PO Take 162 mg by mouth once daily Active vitamin D3 (Cholecalciferol) 25 MCG (1000 UNITS) tablet Take 1 (one) tablet by mouth once daily Active Insulin Pen Needle 32G X 4 MM MISCIndications:Typ e 2 diabetes mellitus affecting in second trimester, antepartum (HCC) Use 1 Each 5 times daily 200 Each 11 07/17/2023 Active insulin lispro (HumaLOG;ADMelog) 100 UNIT/ML penIndications:Type 2 diabetes mellitus affecting in second trimester, antepartum (HCC) Inject 14 units before breakfast and lunch, and 8 units before dinner. Increase dose as directed during . Max total daily dose = 50 units. 15 mL 4 08/09/2023 Active Additional Information Patient taking differently: Inject 14 units before breakfast and lunch, and 8 units before dinner. Increase dose as directed during . Max total daily dose = 50 units.Updated 08/21 18-20 units B/ 16 units L/ 10 units DUpdated 09/30 same dose., Informant: Patient, Reported on 10/01/2023 catalino Tellez, penIndications:Type 2 Diabetes Mellitus INJECT 88 UNITS EVERY MORNING AND 88 UNITS EVERY EVENING. SPACE DOSES 12 HOURS APART. INCREASE DIRECTED DURING . MAX DAILY CDAO=703 UNITS. REASONS: TYPE 2 DIABETES Reasons: Type 2 Diabetes 60 mL 1 10/23/2023 Active Active Problems Problem Noted Date Diagnosed Date Advanced maternal age in multigravida 06/05/2023 Type 2 diabetes mellitus aff ecting in second trimester, antepartum 05/15/2023 Overview (05/15/2023): New dx of T2 DM 05/01/23 GCT 296 mg/dl; 05/01/23 A1c 9.4% Negative hx GDM Risk factors: grandfather and great aunt with DM, AMA, PPBMI 35.70 (210 lbs, 64 ) Family History Medical History Relation Name Comments Hypertension Father Diabetes; unknown type Maternal Grandfather CVA Maternal Grandmother Relation Name Status Comments Father Maternal Grandfather Maternal Grandmother Social History Tobacco Use Types Packs/Day Years Used Date Smoking Tobacco: Never Smokeless Tobacco: Never Tobacco Cessation:Counseling Given: Not Answered Alcohol Use Standard Drinks/Week Comments Not Currently 0 (1 standard drink = 0.6 oz pur e alcohol) Sex and Gender Information Value Date Recorded Sex Assigned at Not on file Gender Identity Not on file Sexual Orientation Not on file Last Filed Vital Signs Vital Sign Reading Time Taken Comments Blood Pressure 114/64 10/01/2023 1:21 PM CDT Pulse 101 10/01/2023 1:21 PM CDT Temperature - - Respiratory Rate 18 10/01/2023 1:21 PM CDT Oxygen Saturation - - Inhaled Oxygen Concentration - - Weight 98.9 kg (218 lb) 10/01/2023 1:21 PM CDT Height 162.6 cm (5' 4 ) 05/29/2023 9:46 AM CDT Body Mass Index 37.42 05/29/2023 9:46 AM CDT Plan of Treatment Health Maintenance Due Date Last Done Comments LIPID TESTING 1982 PAP SMEAR 1982 HIV SCREENING 1997 HEPATITIS C SCREENING 10/17/2000 DTAP/TDAP/TD VACCINES (1 - Tdap) 2001 HEPATITIS B VACCINE (1 of 3 - 19+ 3-dose series) 2001 PNEUMOCOCCAL VACCINE (1 of 2 - PCV) 2001 SCREENING FOR DIABETES 06/04/2023 COVID-19 VACCINE (2023- season) 2023 01/10/2022, 02/20/2021, 06/15/2020, Additional history exists INFLUENZA VACCINE (#1) 2023 , 12/28/2019, 01/08/2017, Additional history exists DEPRESSION SCREENING 03/11/2024 MAMMOGRAM 11/07/2024 11/07/2022, 11/07/2022 ZOSTER VACCINE (1 of 2) 2032 HIB VACCINE Aged Out No longer eligi ble based on patient's age to complete this topic HPV VACCINE Aged Out No longer eligi ble based on patient's age to complete this topic MENINGOCOCCAL (Group B) VACCINE SHARED DECISION-MAKING Aged Out No longer eligible based on patient's age to complete this topic MENINGOCOCCAL GROUPS A/C/Y/W VACCINE Aged Out No longer eligible based on patient's age to complete this topic
--- OUTSIDE RECORDS SUMMARY | 2024-05-29 12:03 | XMS_ITS | Clinical Summary ---
Author Organization [facility] Address [address] [place] [address] [place] [phone] Phone Care Team Providers Care Special Education Educational Assistant Name Role Phone Marjan Cuba NP Primary Care Provider [phone] Neda Del Toro MD Unavailable [phone] Allergies No known active allergies Medications PNV 119-iron fum-folic acid ( 19) 29 mg iron- 1 mg tablet Take 1 tablet by mouth daily Active Active Problems No known active problems Social History Tobacco Use Types Packs/Day Years Used Date Smoking Tobacco: Never Assessed Comments No Sex and Gender Information Value Date Recorded Sex Assigned at Not on file Legal Sex Female 8:39 AM CDT Gender Identity Not on file Sexual Orientation Not on file Obstetrics History Para Term AB IAB SAB Ectopic Multiple Livin g Live Births 1 1 1 Date Outcome GA Total Labor Labor/2nd/3rd Weight Sex Type Anes PTL Krista A1 A5 Name Clin Term Last Filed Vital Signs Vital Sign Reading Time Taken Comments Blood Pressure 128/80 01/19/2024 5:24 PM ART MANAGER Pulse 86 01/19/2024 5:24 PM ART MANAGER Temperature 37.1 C (98.8 F) 01/19/2024 5:24 PM ART MANAGER Respiratory Rate 18 01/19/2024 5:24 PM ART MANAGER Oxygen Saturation 97% 01/19/2024 5:24 PM ART MANAGER Inhaled Oxygen Concentration - - Weight 94.7 kg (208 lb 12.8 oz) 01/19/2024 5:24 PM ART MANAGER Height - - Body Mass Index - - Plan of Treatment Health Maintenance Due Date Last Done Comments Cervical Cancer Screening 1982 Depression Screening 1982 Hepatitis C Screening 1982 Varicella Vaccines (1 of 2 - 13+ 2-dose series) 10/23/1995 Hepatitis B Screening 2000 Regular Well Visit/Exam 18-64 2000 HPV Vaccines (2 - 3-dose SCDM series) 12/31/2018 12/03/2018 Breast Cancer Screening-Mammogram 11/08/2023 11/07/2022 Covid-19 Vaccine ( season) 2023 01/10/2022, 02/20/2021, 06/15/2020, Additional history exists Influenza Vaccine (#1) 2023 , 12/28/2019, 01/08/2017, Additional history exists DTaP/Tdap/Td Vaccine (2 - Td or Tdap) 07/23/2026 07/23/2016 Pneumococcal vaccine <65 Aged Out No longer eligible based on patient's age to complete this topic Procedures Procedure Name Priority Date/Time Associated Diagnosis Comments SCREENING MAMMOGRAM BILATERAL W CEDRICK Schedule Routine, Read Routine (OP Routine) 11/07/2022 9:02 AM CDT Screening mammogram, encounter for from Last 3 Months or Most Recently Relevant to Health Maintenance Results * Screening Mammogram Bilateral W Cedrick (11/07/2022 9:02 AM CDT) Anatomical Region Laterality Modality Breast Bilateral Mammography 11/07/2022 9:12 AM CDT Impressions 11/07/2022 9:12 AM CDT There is no mammographic evidence of malignancy. A 1 year screening mammogram is recommended. BI-RADS: 1 - Negative. The patient has been or will be contacted. The patient will be entered into a reminder system with a target due date of 1 year for her next mammogram. Electronically signed by: Minor Carty M.D. Narrative 11/07/2022 9:12 AM CDT EXAMINATION: SCREENING MAMMOGRAM BILATERAL W CEDRICK ORDERING HEALTHCARE PROVIDER: SELF SCREENING MAMMOGRAM HISTORY: Routine screening mammography. COMPARISON: None available, baseline mammogram TECHNIQUE: CC and MLO views of the bilateral breasts were obtained with digital technique using breast tomosynthesis with C view. Computer aided detection was utilized. FINDINGS: DENSITY: The tissue of the bilateral breasts is heterogeneously dense, which may obscure small masses. BREASTS: There are no suspicious masses, suspicious calcifications, or other suspicious findings in either breast. us Self Screening Mammogram IMG MAMMO PROCEDURES Fi nal Result from Last 3 Months or Most Recently Relevant to Health Maintenance Insurance [place] Care Teams Special Education Educational Assistant Relationship Specialty Start Date End Date Marjan Cuba NP [address] [id number] PCP - General Family Medicine 09/07/22 Neda Del Toro MD [address] [place] [address] Obstetrics and Gynecology 11/07/22
--- OUTSIDE RECORDS SUMMARY | 2024-05-29 12:03 | XMS_ITS | Encounter Summary ---
Author Organization [facility] Address [address] [place] [address] Care Team Providers Care Kettle Chipper Name Role Phone Unavailable Primary Care Provider Unavailabl e Reason for Visit * Reason Onset Date Comments MEDICATION REFILL 09/27/2023 Encounter Details Date Type Department Care Team (Late st Contact Info) Description 09/27/2023 Telephone [facility] - TELEGRAPHIC SERVICE DISPATCHER [address] [place] [address] Godfrey Rowe MD [address] [place], [place] [id number] MEDICATION REFILL Social History Tobacco Use Types Packs/Day Years Used Date Smoking Tobacco: Never Smokeless Tobacco: Never Alcohol Use Standard Drinks/Week Comments Not Currently 0 (1 standard drink = 0.6 oz pur e alcohol) Comments Yes Sex and Gender Information Value Date Recorded Sex Assigned at Not on file Gender Identity Not on file Sexual Orientation Not on file documented as of this encounter Miscellaneous Notes * Telephone Encounter - [place]le - 09/27/2023 2:16 PM CDT [facility] received[facility]ino Tellez [facility] them she was suppose to receive an higher quantity for this medication. She only has one pen left and they wont refill until an order is placed for her to take 78 at night 78 in the morning. CB: [phone] documented in this encounter Plan of Treatment Not on file documented as of this encounter Visit Diagnoses Not on filedocumented in this encounter
--- OUTSIDE RECORDS SUMMARY | 2024-05-29 12:03 | XMS_ITS | Data Portability ---
Author Organization [facility] Address [address] [place] [address] Assessment No assessment recorded. Plan of Treatment Reminders Order Date Submit Date Provider Last Modified By Organization Details Last Modified Time Details Appointments None recorded . Lab bacteria l vaginosi s panel, vaginal 2020 AMANDA [facility] (Centralized Electronic Ordering - All Locations), Patient Can Go To The Location Of Their Choice, [address] 14:50:10 culture, vaginal/ rectal, streptoc occus group B 2020 021 AMANDA [facility] (Centralized Electronic Ordering - All Locations), Patient Can Go To The Location Of Their Choice, [address] 14:50:10 urinalys is, dipstick 2019 020 [email or web address] In-Office Order, Internal Use Only DO Not Attach Compendium DO Not Attach Compendium, Do Not Delete/merge, [id number] 0 14:54:25 pregnanc y test, urine 2019 020 [email or web address] In-Office Order, Internal Use Only DO Not Attach Compendium DO Not Attach Compendium, Do Not Delete/merge, [id number] 0 14:54:25 urinalys is, dipstick 2016 017 [email or web address] In-Office Order, Internal Use Only DO Not Attach Compendium DO Not Attach Compendium, Do Not Delete/merge, [id number] 7 12:12:14 pregnanc y test, urine 2016 017 [email or web address] In-Office Order, Internal Use Only DO Not Attach Compendium DO Not Attach Compendium, Do Not Delete/merge, [id number] 7 12:12:14 pap, IG + HPV, cervical 2016 017 [facility], 2022 Mitzi Capone, [address], [address], 7 06:03:44 urinalys is, dipstick 2016 017 [facility], Internal Use Only DO Not Attach Compendium DO Not Attach Compendium, Do Not Delete/merge, [id number] 7 15:08:43 pregnanc y test, urine 2016 017 [facility], Internal Use Only DO Not Attach Compendium DO Not Attach Compendium, Do Not Delete/merge, [id number] 7 15:08:43 bacteria l vaginosi s + vaginiti s panel, vaginal - Z11.3 2016 017 [facility], [facility], [address], [place], [address], 7 06:03:41 HSV (1+2) DNA, qual, PCR, unspecif ied specimen - Z11.3 2016 017 [facility], [address] [place] [address], [address], [place], [address], 7 06:03:42 culture, vaginal/ rectal, streptoc occus group B - Z11.3 2016 017 [facility], [address] [place] [address], [address], [place], [address], 7 06:03:42 Referral None recorded . Procedures None recorded . Surgeries None recorded . Imaging None recorded . Medication Orders acyclovi r 800 mg tablet 2020 021 [facility], [address] [place], [address], 1 14:44:00 multivit rich tablet 2020 021 [facility], [address] [place], [address], 1 14:50:15 Calcium with Vitamin D 600 mg-10 mcg (400 unit) tablet 2020 021 [facility], [address] [place], [address], 1 14:50:11 multivit rich tablet 2019 ATHENAFAX Not available 0 23:47:03 Calcium with Vitamin D 600 mg-10 mcg (400 unit) tablet 2019 ATHENAFAX Not available 0 23:47:03 Nexplano n 68 mg subderma l implant 2019 020 [email or web address] Not available 0 23:43:39 acyclovi r 800 mg tablet 2016 017 [facility], [address] [place] [address], [address], 7 12:12:14 acyclovi r 800 mg tablet 2016 017 [facility], [address] [place] [address], [address], 7 12:12:14 lanolin anhydrou s topical ointment 2016 017 [facility], [address] [place] [address], [address], 1 14:24:38 calcium 600 mg (as carbonat e)-vitam in D3 20 mcg (800 unit) tablet [address] [facility], [address] [place] [address], [address], 8 10:05:01 multivit rich tablet 2016 017 [facility], [address] [place] [address], [address], 7 12:10:30 Lo Loestrin Fe 1 mg-10 mcg (24)/10 mcg (2) tablet [address] [facility], [address] [place] [address], [address], 8 10:04:44 Reglan 10 mg tablet 2016 017 [facility], [address] [place] [address], [address], 1 14:24:49 Nexplano n 68 mg subderma l implant 2016 017 [facility], [address] [place] [address], [address], 7 15:00:48 calcium 600 mg (as carbonat e)-vitam in D3 20 mcg (800 unit) tablet [address] [facility], [address] [place] [address], [address], 8 10:05:01 Vitamin tablet 2016 017 [facility], [address] [place] [address], [address], 1 14:24:45 Lo Loestrin Fe 1 mg-10 mcg (24)/10 mcg (2) tablet 2016 017 [email or web address], [address] [facility], [place], [address], 8 10:04:44 Patient TargetsNo targets recorded. Patient Instructions Encounter Date Encounter Id Patient Instructions Last Modified By Organization Details Last Modified Time 01/08/2017 [id number] influenza (flu) vaccine: care instructions [email or web address] Not available 01/08/2017 12:12:14 genital herpes: care instructions mwasserman Not available 01/08/2017 12:12:14 03/22/2020 [id number] genital herpes: care instructions mwasserman Not available 03/22/2020 14:42:43 Reason for Referral None Reported. Results Created Date Observation Date Name Description Value Unit Range Abnormal Flag Note LastModifiedBy Organization Detail LastModifiedTime 01/09/20 17 01/08/2017 pregn devyn test, urine HCG negati ve Not Available In-Office Order Internal Use Only DO Not Attach Compendium DO Not Attach Compendium, Do Not Delete/merge, [id number] 01/08/2017 10:46:54 01/09/20 17 01/08/2017 urina lysis , dipst ick Leukocytes Small Not Available In-Offi ce Order Internal Use Only DO Not Attach Compendium DO Not Attach Compendium, Do Not Delete/merge, [id number] 01/08/2017 10:46:16 01/09/20 17 01/08/2017 urina lysis , dipst ick Nitrite negati ve Not Available In-Office Order Internal Use Only DO Not Attach Compendium DO Not Attach Compendium, Do Not Delete/merge, [id number] 01/08/2017 10:46:16 01/09/20 17 01/08/2017 urina lysis , dipst ick Urobilinogen .2 Not Available In-Of fice Order Internal Use Only DO Not Attach Compendium DO Not Attach Compendium, Do Not Delete/merge, [id number] 01/08/2017 10:46:16 01/09/20 17 01/08/2017 urina lysis , dipst ick Protein Negati ve Not Available In-Office Order Internal Use Only DO Not Attach Compendium DO Not Attach Compendium, Do Not Delete/merge, [id number] 01/08/2017 10:46:16 01/09/20 17 01/08/2017 urina lysis , dipst ick pH 5.5 Not Available In-Office Order Internal Use Only DO Not Attach Compendium DO Not Attach Compendium, Do Not Delete/merge, [id number] 01/08/2017 10:46:16 01/09/20 17 01/08/2017 urina lysis , dipst ick Blood Negati ve Not Available In-Office Order Internal Use Only DO Not Attach Compendium DO Not Attach Compendium, Do Not Delete/merge, [id number] 01/08/2017 10:46:16 01/09/20 17 01/08/2017 urina lysis , dipst ick Specific [place] 1.015 Not Available In-Off ice Order Internal Use Only DO Not Attach Compendium DO Not Attach Compendium, Do Not Delete/merge, [id number] 01/08/2017 10:46:16 01/09/20 17 01/08/2017 urina lysis , dipst ick Ketone Negati ve Not Available In-Office Order Internal Use Only DO Not Attach Compendium DO Not Attach Compendium, Do Not Delete/merge, [id number] 01/08/2017 10:46:16 01/09/20 17 01/08/2017 urina lysis , dipst ick Bilirubin Negati ve Not Available In-Office Order Internal Use Only DO Not Attach Compendium DO Not Attach Compendium, Do Not Delete/merge, [id number] 01/08/2017 10:46:16 01/09/20 17 01/08/2017 urina lysis , dipst ick Glucose Negati ve Not Available In-Office Order Internal Use Only DO Not Attach Compendium DO Not Attach Compendium, Do Not Delete/merge, [id number] 01/08/2017 10:46:16 11/27/19 17 11/26/2016 pregn devyn test, urine HCG negati ve Not Available In-Office Order Internal Use Only DO Not Attach Compendium DO Not Attach Compendium, Do Not Delete/merge, [id number] 11/26/2016 10:15:21 11/27/19 17 11/26/2016 urina lysis , dipst ick Leukocytes Small Not Available In-Offi ce Order Internal Use Only DO Not Attach Compendium DO Not Attach Compendium, Do Not Delete/merge, 11/26/2016 10:14:45 11/27/1911/26/2016 urina lysis , dipst ick Nitrite negati ve Not Available In-Office Order Internal Use Only DO Not Attach Compendium DO Not Attach Compendium, Do Not Delete/merge, 11/26/2016 10:14:45 11/27/1911/26/2016 urina lysis , dipst ick Urobilinogen .2 Not Available In-Of fice Order Internal Use Only DO Not Attach Compendium DO Not Attach Compendium, Do Not Delete/merge, 11/26/2016 10:14:45 11/27/1911/26/2016 urina lysis , dipst ick Protein Negati ve Not Available In-Office Order Internal Use Only DO Not Attach Compendium DO Not Attach Compendium, Do Not Delete/merge, 11/26/2016 10:14:45 11/27/1911/26/2016 urina lysis , dipst ick pH 5.5 Not Available In-Office Order Internal Use Only DO Not Attach Compendium DO Not Attach Compendium, Do Not Delete/merge, 11/26/2016 10:14:45 11/27/1911/26/2016 urina lysis , dipst ick Blood Negati ve Not Available In-Office Order Internal Use Only DO Not Attach Compendium DO Not Attach Compendium, Do Not Delete/merge, 11/26/2016 10:14:45 11/27/1911/26/2016 urina lysis , dipst ick Specific [place] 1.020 Not Available In-Off ice Order Internal Use Only DO Not Attach Compendium DO Not Attach Compendium, Do Not Delete/merge, 11/26/2016 10:14:45 11/27/1911/26/2016 urina lysis , dipst ick Ketone Negati ve Not Available In-Office Order Internal Use Only DO Not Attach Compendium DO Not Attach Compendium, Do Not Delete/merge, 11/26/2016 10:14:45 11/27/1911/26/2016 urina lysis , dipst ick Bilirubin Negati ve Not Available In-Office Order Internal Use Only DO Not Attach Compendium DO Not Attach Compendium, Do Not Delete/merge, 11/26/2016 10:14:45 11/27/19 17 11/26/2016 urina lysis , dipst ick Glucose Negati ve Not Available In-Office Order Internal Use Only DO Not Attach Compendium DO Not Attach Compendium, Do Not Delete/merge, 11/26/2016 10:14:45 11/01/19 17 10/31/2016 urina lysis , dipst ick Leukocytes Large Not Available In-Offi ce Order Internal Use Only DO Not Attach Compendium DO Not Attach Compendium, Do Not Delete/merge, 10/31/2016 15:05:56 11/01/19 17 10/31/2016 urina lysis , dipst ick Nitrite negati ve Not Available In-Office Order Internal Use Only DO Not Attach Compendium DO Not Attach Compendium, Do Not Delete/merge, 10/31/2016 15:05:56 11/01/19 17 10/31/2016 urina lysis , dipst ick Urobilinogen .2 Not Available In-Of fice Order Internal Use Only DO Not Attach Compendium DO Not Attach Compendium, Do Not Delete/merge, 10/31/2016 15:05:56 11/01/19 17 10/31/2016 urina lysis , dipst ick Protein Trace Not Available In-Office Order Internal Use Only DO Not Attach Compendium DO Not Attach Compendium, Do Not Delete/merge, 10/31/2016 15:05:56 11/01/19 17 10/31/2016 urina lysis , dipst ick pH 7.0 Not Available In-Office Order Internal Use Only DO Not Attach Compendium DO Not Attach Compendium, Do Not Delete/merge, 10/31/2016 15:05:56 11/01/19 17 10/31/2016 urina lysis , dipst ick Blood Small Not Available In-Office Order Internal Use Only DO Not Attach Compendium DO Not Attach Compendium, Do Not Delete/merge, 10/31/2016 15:05:56 11/01/19 17 10/31/2016 urina lysis , dipst ick Specific [place] 1.015 Not Available In-Off ice Order Internal Use Only DO Not Attach Compendium DO Not Attach Compendium, Do Not Delete/merge, [id number] 10/31/2016 15:05:56 11/01/19 17 10/31/2016 urina lysis , dipst ick Ketone Negati ve Not Available In-Office Order Internal Use Only DO Not Attach Compendium DO Not Attach Compendium, Do Not Delete/merge, [id number] 10/31/2016 15:05:56 11/01/19 17 10/31/2016 urina lysis , dipst ick Bilirubin Negati ve Not Available In-Office Order Internal Use Only DO Not Attach Compendium DO Not Attach Compendium, Do Not Delete/merge, [id number] 10/31/2016 15:05:56 11/01/19 17 10/31/2016 urina lysis , dipst ick Glucose Negati ve Not Available In-Office Order Internal Use Only DO Not Attach Compendium DO Not Attach Compendium, Do Not Delete/merge, [id number] 10/31/2016 15:05:56 11/01/19 17 10/31/2016 urina lysis , dipst ick Appearance Clear Not Available In-Offi ce Order Internal Use Only DO Not Attach Compendium DO Not Attach Compendium, Do Not Delete/merge, [id number] 10/31/2016 15:05:56 11/01/19 17 10/31/2016 urina lysis , dipst ick Color Yellow Not Available In-Office Order Internal Use Only DO Not Attach Compendium DO Not Attach Compendium, Do Not Delete/merge, [id number] 10/31/2016 15:05:56 11/01/19 17 11/04/2016 CT + NG + TV, DNA, urine /swab chlamydia by ROSLYN NEGATI VE negati ve Not Available [facility] ([facility]) [address] [facility], [place], [address], 11/05/2016 06:04:50 11/01/19 17 11/04/2016 CT + NG + TV, DNA, urine /swab gonococcus by ROSLYN NEGATI VE negati ve Not Available [facility] ([facility]) [address] [facility], [place], [address], 11/05/2016 06:04:50 11/01/19 17 11/04/2016 CT + NG + TV, DNA, urine /swab trich vag by ROSLYN NEGATI VE negati ve Not Available [facility] ([facility]) [address] [facility], [place], [address], 11/05/2016 06:04:50 11/01/19 17 11/03/2016 cultu re, vagin al/re ctal, strep tococ cus group B strep gp B ROSLYN NEGATI VE negati ve CENTE RS FOR DISEA SE CONTR OL AND PREVE NTION ([facility]) AND AMERI CAN CONGR ESS OF OBSTE TRICI ANS AND GYNEC OLOGI STS (ACOG ) GUIDE LINES FOR PREVE NTION OF PERIN ATAL GROUP B STREP TOCOC YADIEL (GBS) DISEA SE SPECI FY CO-CO LLECT ION OF A VAGIN AL AND RECTA L SWAB SPECI MEN TO MAXIM IZE SENSI TIVIT Y OF GBS DETEC TION. PER THE CDC AND ACOG, SWABB ING BOTH THE LOWER VAGIN A AND RECTU M SUBST ANTIA LLY INCRE ASES THE YIELD OF DETEC TION KACIE RED WITH SAMPL ING THE VAGIN A ALONE . PENIC ILLIN G, AMPIC ILLIN , OR CEFAZ STACY ARE INDIC ATED FOR INTRA PARTU M PROPH YLAXI S OF PERIN ATAL GBS COLON IZATI ON. REFLE X SUSCE PTIBI LITY TESTI NG SHOUL D BE PERFO RMED PRIOR TO USE OF CLIND AMYCI N ONLY ON GBS ISOLA TRICIA FROM PENIC ILLIN -ALMA ROSA RGIC WOMEN WHO ARE CONSI DERED A HIGH RISK FOR ANAPH YLAXI S. TREAT MENT WITH VANCO MYCIN WITHO UT ADDIT IONAL TESTI NG IS WARRA NTED IF RESIS TANCE TO CLIND AMYCI N IS NOTED . Not Available [facility] ([facility]) [address] [facility], [place], [address], 11/05/2016 06:04:51 11/27/19 17 11/28/2016 bacte rial vagin osis + vagin itis panel , vagin al atopobium vaginae LOW - 0 score Not Available [facility] ([facility]) [address] [place], [address], 11/30/2016 06:03:41 11/27/19 17 11/28/2016 bacte rial vagin osis + vagin itis panel , vagin al bvab 2 LOW - 0 score Not Available [facility] ([facility]) [address] [facility], [place], [address], 11/30/2016 06:03:41 11/27/1911/28/2016 bacte rial vagin osis + vagin itis panel , vagin al megasphaera 1 LOW - 0 score Calcu late total score by blane gale the 3 indiv idual bacte rial vagin osis (BV) marke r score s toget her. Total score is inter prete d as follo ws: Total score 0-1: Indic ates the absen ce of BV. Total score 2: Indet ermin ate for BV. Addit ional clini yadiel data shoul d be evalu ated to estab helena a diagn osis. Total score 3-6: Indic ates the prese nce of BV. This test was devel oped and its perfo rmanc e vicki cteri stics deter mined by [facility]. It has not been clear ed or appro mariana by the Food and Drug Admin istra tion. The FDA has deter mined that such clear ance or appro tony is not neces edi. Not Available [facility] ([facility]) [address] [facility], [place], [address], 11/30/2016 06:03:41 11/27/1911/29/2016 bacte rial vagin osis + vagin itis panel , vagin al ed albicans, ROSLYN NEGATI VE negati ve Not Available [facility] ([facility]) [address] [facility], [place], [address], 11/30/2016 06:03:41 11/27/19 17 11/29/2016 bacte rial vagin osis + vagin itis panel , vagin al ed glabrata, ROSLYN NEGATI VE negati ve This test was ana matos and its perfo rmradha e vicki cteri stics deter mined by [facility]. It has not been clear ed or appro mariana by the Food and Drug Admin istra tion. The FDA has deter mined that such clear ance or appro tony is not neces edi. Not Available [facility] ([facility]) [address] [place], [address], 11/30/2016 06:03:41 11/27/19 17 11/29/2016 bacte rial vagin osis + vagin itis panel , vagin al trich vag by ROSLYN NEGATI VE negati ve Not Available [facility] ([facility]) [address] [place], [address], 11/30/2016 06:03:41 11/27/19 17 11/29/2016 bacte rial vagin osis + vagin itis panel , vagin al chlamydia trachomatis, ROSLYN NEGATI VE negati ve Not Available [facility] ([facility]) [address] [place], [address], 11/30/2016 06:03:41 11/27/19 17 11/29/2016 bacte rial vagin osis + vagin itis panel , vagin al neisseria gonorrhoeae, ROSLYN NEGATI VE negati ve Not Available [facility] ([facility]) [address] [place], [address], 11/30/2016 06:03:41 11/27/1911/28/2016 HSV (1+2) DNA, qual, PCR, unspe cifie d speci men hsv 1 ROSLYN NEGATI VE negati ve Not Available [facility] ([facility]) [address] [place], [address], 11/30/2016 06:03:42 11/27/19 17 11/28/2016 HSV (1+2) DNA, qual, PCR, unspe cifie d speci men hsv 2 ROSLYN POSITI VE negati ve abnormal Not Available [facility] ([facility]) [address] [facility], [place], [address], 11/30/2016 06:03:42 11/27/19 17 11/28/2016 cultu re, vagin al/re ctal, strep tococ cus group B strep gp B ROSLYN NEGATI VE negati ve Cente rs for Disea se Contr ol and Preve ntion ([facility]) and Ameri can Congr ess of Obste trici ans and Gynec ologi sts (ACOG ) guide lines for preve ntion of perin atal group B strep tococ yadiel (GBS) disea se speci fy co-co llect ion of a vagin al and recta l swab speci men to maxim ize sensi tivit y of GBS detec tion. Per the CDC and ACOG, swabb ing both the lower vagin a and rectu m subst antia lly incre ases the yield of detec tion kacie red with sampl ing the vagin a alone . Penic illin G, ampic illin , or cefaz stacy are indic ated for intra partu m proph ylaxi s of perin atal GBS colon izati on. Refle x susce ptibi lity testi ng shoul d be perfo rmed prior to use of clind amyci n only on GBS isola tricia from penic illin -alma rosa rgic women who are consi dered a high risk for anaph ylaxi s. Treat ment with vanco mycin witho ut addit ional testi ng is warra nted if resis tance to clind amyci n is noted . Not Available [facility] ([facility]) [address] [facility], [place], [address], 11/30/2016 06:03:42 11/27/19 17 11/28/2016 pap, IG + HPV, cervi yadiel diagnosis: COMMEN T NEGAT SARAVANAN FOR INTRA EPITH ELIAL LESIO N AND MALIG BERNIE . Not Available [facility] ([facility]) [address] [place], [address], 11/30/2016 06:03:44 11/27/19 17 11/28/2016 pap, IG + HPV, cervi yadiel specimen adequacy: HECTOR Novoa Satis facto ry for evalu ation . Endoc ervic al and/o r squam ous metap lasti c cells (endo cervi yadiel compo nent) are prese nt. Not Available [facility] ([facility]) [address] [place], [address], 11/30/2016 06:03:44 11/27/19 17 11/28/2016 pap, IG + HPV, cervi yadiel clinician provided ICD10: HECTOR Novoa V24.2 Z39.2 Not Available [facility] ([facility]) [address] [place], [address], 11/30/2016 06:03:44 11/27/19 17 11/28/2016 pap, IG + HPV, cervi yadiel performed by: Neymar Owens (ASCP ) Not Available [facility] ([facility]) [address] [place], [address], 11/30/2016 06:03:44 11/27/19 17 11/28/2016 pap, IG + HPV, cervi yadiel . . Not Available [facility] ([facility]) [address] [place], [address], 11/30/2016 06:03:44 11/27/19 17 11/28/2016 pap, IG + HPV, cervi yadiel note: HECTOR Novoa The Pap smear is a scree karina test desig gretel to aid in the detec tion of mariluz ligna nt and malig nant condi tions of the uteri ne cervi x. It is not a diagn ostic proce dure and shoul d not be used as the sole means of detec ting cervi yadiel cance r. Both false -posi tive and false -nega tive repor ts do occur . Not Available [facility] ([facility]) [address] [facility], [place], [address], 11/30/2016 06:03:44 11/27/19 17 11/28/2016 pap, IG + HPV, cervi yadiel test methodology: COMMEN T This liqui d based ThinP rep(R ) pap test was ravine gretel with the use of an image guide jeannette lynn. Not Available [facility] ([facility]) [address] [facility], [place], [address], 11/30/2016 06:03:44 11/27/19 17 11/29/2016 pap, IG + HPV, cervi yadiel HPV aptima NEGATI VE negati ve This test detec ts fourt een high- risk HPV types (16/1 8/31/ 33/35 /39/4 5/ 51/52 /56/5 8/59/ 66/68 ) witho ut diffe renti ation . Not Available [facility] ([facility]) [address] [facility], [place], [address], 11/30/2016 06:03:44 12/13/19 17 12/13/2016 hsv-2 (herp es simpl ex virus type 2) igg Ab, serum hsv 2 IgG, type spec <0.91 index 0.00-0 .90 Negat saravanan <0.91 Equiv ocal 0.91 - 1.09 Posit saravanan >1.09 Note: Negat saravanan indic ates no antib odies detec belkys to HSV-2 . Equiv ocal may sugge st early infec tion. If clini jessica appro priat e, retes t at later date. Posit saravanan indic ates antib odies detec belkys to HSV-2 . Not Available [facility] ([facility]) [address] [facility], [place], [address], 12/13/2016 08:32:06 01/04/2001/04/2020 pregn devyn test, urine HCG negati ve Not Available In-Office Order Internal Use Only DO Not Attach Compendium DO Not Attach Compendium, Do Not Delete/merge, [id number] 01/04/2020 12:38:23 01/04/20 20 01/04/2020 urina lysis , dipst ick Leukocytes Negati ve Not Available In-Office Order Internal Use Only DO Not Attach Compendium DO Not Attach Compendium, Do Not Delete/merge, [id number] 01/04/2020 12:37:47 01/04/20 20 01/04/2020 urina lysis , dipst ick Nitrite negati ve Not Available In-Office Order Internal Use Only DO Not Attach Compendium DO Not Attach Compendium, Do Not Delete/merge, [id number] 01/04/2020 12:37:47 01/04/20 20 01/04/2020 urina lysis , dipst ick Urobilinogen .2 Not Available In-Of fice Order Internal Use Only DO Not Attach Compendium DO Not Attach Compendium, Do Not Delete/merge, [id number] 01/04/2020 12:37:47 01/04/20 20 01/04/2020 urina lysis , dipst ick Protein Negati ve Not Available In-Office Order Internal Use Only DO Not Attach Compendium DO Not Attach Compendium, Do Not Delete/merge, [id number] 01/04/2020 12:37:47 01/04/20 20 01/04/2020 urina lysis , dipst ick pH 5.5 Not Available In-Office Order Internal Use Only DO Not Attach Compendium DO Not Attach Compendium, Do Not Delete/merge, [id number] 01/04/2020 12:37:47 01/04/20 20 01/04/2020 urina lysis , dipst ick Blood Negati ve Not Available In-Office Order Internal Use Only DO Not Attach Compendium DO Not Attach Compendium, Do Not Delete/merge, [id number] 01/04/2020 12:37:47 01/04/20 20 01/04/2020 urina lysis , dipst ick Specific [place] 1.030 Not Available In-Off ice Order Internal Use Only DO Not Attach Compendium DO Not Attach Compendium, Do Not Delete/merge, [id number] 01/04/2020 12:37:47 01/04/20 20 01/04/2020 urina lysis , dipst ick Ketone Negati ve Not Available In-Office Order Internal Use Only DO Not Attach Compendium DO Not Attach Compendium, Do Not Delete/merge, [id number] 01/04/2020 12:37:47 01/04/20 20 01/04/2020 urina lysis , dipst ick Bilirubin Negati ve Not Available In-Office Order Internal Use Only DO Not Attach Compendium DO Not Attach Compendium, Do Not Delete/merge, [id number] 01/04/2020 12:37:47 01/04/20 20 01/04/2020 urina lysis , dipst ick Glucose Negati ve Not Available In-Office Order Internal Use Only DO Not Attach Compendium DO Not Attach Compendium, Do Not Delete/merge, [id number] 01/04/2020 12:37:47 01/04/20 20 01/04/2020 urina lysis , dipst ick Appearance Slight ly Cloudy Not Available In-Office Order Internal Use Only DO Not Attach Compendium DO Not Attach Compendium, Do Not Delete/merge, [id number] 01/04/2020 12:37:47 01/04/20 20 01/04/2020 urina lysis , dipst ick Color Yellow Not Available In-Office Order Internal Use Only DO Not Attach Compendium DO Not Attach Compendium, Do Not Delete/merge, [id number] 01/04/2020 12:37:47 Result Notes None recorded. Problems Name Problem SNOMED Code Status Onset Date Resolution Date Notes Provider Name and Address Organization Details Recorded Time Genital herpes simplex 31780824 Active 2020 Chacorta [place] null, [place] - [facility] 1 14:42:20 61055200 Completed 201510/09/2016 Chacorta [place] [facility] 7 14:02:48 Abnormal progester one 635518413 Completed Yennifer Ponce [place] - [facility] 7 10:06:36 Abnormal progester one 865102538 Active Yennifer Ponce [place] [facility] 7 10:06:36 Vitamin D deficienc y 37827367 Active 2016 Yennifer Ponce [place] [facility] 7 10:06:36 Vitamin D deficienc y 73713978 Completed 2016 ANGY Matt, DANNIE - [facility] 7 10:06:36 Bacterial vaginosis 952092744 Active 2016 ANGY Matt, DANNIE - [facility] 7 10:06:36 Bacterial vaginosis 688770991 Completed 2016 ANGY Matt, [place] - [facility] 7 10:06:36 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 Procedures Surgical History Date Name Laterality Status Provider Name and Address Organization Details Recorded Time 0 Control Implant Removal completed Chacorta PANDEY - [facility] 01/04/2020 18:01:27 0 Control Implant Insertion completed Chacorta Lopez [facility] 01/04/2020 18:01:31 7 Control Implant Insertion completed Yennifer Ponce ANGY PANDEY [facility] 01/08/2017 10:44:56 7 Date of Last Pap Smear completed Yennifer Ponce MA DANNIE [facility] 11/26/2016 10:04:54 5 Unlisted px dentalvlr strux completed Laurieemilie Terrazas MA [place] - [facility] 02/07/2016 12:42:57 Imaging Results None recorded. Procedure Notes None recorded. Medical Equipment None Reported. Allergies No known drug allergies Medications Name Sig Start Date Stop Date Status Note LastModified by Organization Details LastModified Time multivitami n tablet Take 1 tablet every day by oral route. 2020 active Not Available Not Available Not Avai lable cyclobenzap rine 10 mg tablet 04/03 completed Not Available Not Available Not Available cetirizine 10 mg tablet Take 1 tablet every day by oral route. 01/08 completed Not Available Not Available Not Available ibuprofen 800 mg tablet TAKE 1 TABLET BY MOUTH THREE TIMES DAILY NEEDED FOR CRAMPS 03/22 completed Not Available Not Available Not Available Keflex 500 mg capsule Take 1 capsule every 12 hours by oral route for 14 days. 11/26 completed Not Available Not Available Not Available metronidazo le 0.75 % (37.5 mg/5 gram) vaginal gel Insert 1 applicato rful every day by vaginal route at bedtime for 5 days. 04/03 completed Not Available Not Available Not Available Prometrium 100 mg capsule Take 1 capsule twice a day by oral route. 02/06 completed Not Available Not Available Not Available metronidazo le 500 mg tablet Take 1 tablet twice a day by oral route for 14 days. 01/08 completed Not Available Not Available Not Available sulfamethox azole 800 mg-trimetho prim 160 mg tablet active Not Available Not Available Not Available Reglan 10 mg tablet Take 1 tablet 4 times a day by oral route. 03/22 completed Not Available Not Available Not Available acyclovir 800 mg tablet TAKE 1 TABLET BY MOUTH ONCE DAILY active Not Available Not Available No t Available Vitamin tablet Take 1 tablet every day by oral route as directed for 90 days. 03/22 completed Not Available Not Available Not Available oxycodone-a cetaminophe n 5 mg-325 mg tablet 01/08 completed Not Available Not Available Not Available progesteron e micronized 200 mg capsule take one capsule by mouth twice daily 10/09 completed Not Available Not Available Not Available ibuprofen 600 mg tablet 04/03 completed Not Available Not Available Not Available lanolin anhydrous topical ointment Apply 1 applicati on 3 times a day by topical route as needed. 03/22 completed Not Available Not Available Not Available fluticasone propionate 50 mcg/actuati on nasal spray,suspe nsion Lima 1 spray twice a day by intranasa l route. 03/13 completed Not Available Not Available Not Available Tri-Sprinte c (28) 0.18 mg(7)/0.215 mg(7)/0.25 mg(7)-35 mcg tablet Take 1 tablet every day by oral route. 04/03 completed Not Available Not Available Not Available Calcium with Vitamin D 600 mg-10 mcg (400 unit) tablet Take 1 tablet twice a day by oral route. 2020 active Not Available Not Available Not Avai lable Lo Loestrin Fe 1 mg-10 mcg (24)/10 mcg (2) tablet Take 1 tablet every day by oral route. 03/13 completed Not Available Not Available Not Available Nexplanon 68 mg subdermal implant Inject 1 implant by subcutane ous route. 2019 active Not Available Not Available Not Avai lable calcium 600 mg (as carbonate)- vitamin D3 20 mcg (800 unit) tablet Take 1 tablet twice a day by oral route. 03/13 completed Not Available Not Available Not Available Finacea 15 % topical foam 04/03 completed Not Available Not Available Not Available Afluria 5029-2089 (PF) 45 mcg(15 mcg x 3)/0.5 mL intramuscul ar syringe 10/09 completed Not Available Not Available Not Available Fluzone Quad (PF) 60 mcg (15 mcg x 4)/0.5 mL IM syringe 03/22 completed Not Available Not Available Not Available Vitals Date Recorded Body height Body mass index (BMI) Body weight Systolic blood pressure Diastolic blood pressure Provider Name and Address Organization Details Last Updated DateTime 03/13/2017 162.56 cm 35.2 kg/m2 52344.44 g 114 mm[Hg] 82 mm[Hg] Yennifer Ponce MA [facility] 8 10:07:57 Date Recorded Body weight Body mass index (BMI) Body height Systolic blood pressure Diastolic blood pressure Provider Name and Address Organization Details Last Updated DateTime 01/04/2020 814786.6 9 g 38.4 kg/m2 162.56 cm 118 mm[Hg] 84 mm[Hg] Arina Howard MA [place] - [facility] 0 12:37:09 Date Recorded Body height Body mass index (BMI) Body weight Provider Name and Address Organization Details Last Updated DateTime 03/22/2020 162.56 cm 37.8 kg/m2 25955.32 g Yennifer Ponce MA [facility] 03/22/2020 14:24:15 Date Recorded Body height Body mass index (BMI) Body weight Provider Name and Address Organization Details Last Updated DateTime 11/26/2016 162.56 cm 34.7 kg/m2 45192.66 g Yennifer Ponce MA [facility] 11/26/2016 10:03:37 Date Recorded Body height Body mass index (BMI) Body weight Provider Name and Address Organization Details Last Updated DateTime 01/08/2017 162.56 cm 34.8 kg/m2 96600.25 g Yennifer Ponce MA [facility] 01/08/2017 10:41:22 Social History Question Answer Notes LastModified by Organizat ion Details LastModified Time Tobacco Smoking Status Never Smoker [place] ANGY Batres null, [facility] 01/10/2015 11:50:55 Do You Have An Advance Directive? No Information not available 01/10/2015 What Is Your Level Of Alcohol Consumption? Occasional Information not available 01/10/2015 Is Blood Transfusion Acceptable In An Emergency? Yes Information not available 01/10/2015 What Is Your Level Of Caffeine Consumption? Occasional Information not available 01/10/2015 How Much Tobacco Do You Chew? None Information not available 01/10/2015 Are You Currently Employed? Yes Information not available 01/10/2015 What Type Of Diet Are You Following? REGULAR Information not available 01/10/2015 Do You Or Have You Ever Used E-cigarettes Or Vape? Never Used Electronic Cigarettes Information not available 03/22/2020 Education 2 Year College Informatio n not available 01/10/2015 What Is Your Occupation? [employer] Information not available 01/10/2015 Live Alone Or With Others? With Others Information not available 01/10/2015 What Was The Date Of Your Most Recent Tobacco Screening? 03/22/2020 Information not available 03/22/2020 How Many Children Do You Have? 1 Information not available 03/22/2020 Performs Monthly Self-breast Exam? No Information not available 01/10/2015 Do You Use Protection During Sex? No Information not available 01/10/2015 What Is Your Relationship Status? Single Information not available 01/10/2015 Seat Belts Used Routinely Yes Information not available 01/10/2015 Are You Sexually Active? Yes Information not available 01/10/2015 Do You Or Have You Ever Used Smokeless Tobacco? Never Used Smokeless Tobacco Information not available 03/22/2020 How Much Tobacco Do You Smoke? No Information not available 01/10/2015 General Stress Level Low Information not available 01/10/2015 Do You Use Sunscreen Routinely? Yes Information not available 01/10/2015 How Many Years Have You Smoked Tobacco? 0 Information not available 01/10/2015 Sex: Unknown Functional Status Question Answer Note LastModified by Organizat ion Details LastModified Time What is your exercise level? Occasional Information not available 01/10/2015 Mental Status None recorded. Family History Relationship Description Onset Age of this Age Resolved Age Notes LastModified by Organization Details LastModified Time Father Hypertensive disorder Not available 2014 11:46:06 Maternal Grandfather Diabetes mellitus 80 Not available 2014 11:46:06 Unspecified Relation Diabetes mellitus Matern al great aunt Not available 01/10/2015 11:46:06 Medical History Condition Response Other N High Blood Pressure N Breast Cancer N Thyroid Problems N Kidney or Bladder Problems N GI Problems N Depression N Blood Clots N Lung Disease N Acne N Breast Problem N Eating Disorder N Anemia N Anesthesia Complications N Headaches/Migraines N Anxiety Disorder N Diabetes N Ovarian Cancer N Muscle, Joint, or Bone Problems N Blood Transfusions N Seizures/Epilepsy N Polyps N Infertility N Acid Reflux (GERD) N Cancer N Abuse/Domestic Violence N Asthma N Endometriosis N High Cholesterol N Hepatitis N Liver Disease N Heart Disease N Pre-Eclampsia N Osteoporosis N Gynecological History Statement/Question Response Abnormal Pap N On BCP's at Conception? Y STIs/STDs N HPV Vaccine Y Age at Menarche 13 Current Control Method Implant Age at First Child 36 Sexually Active? Y Menses Monthly N Date of Last Pap Smear 11/26/2016 Sexual Problems? N LMP Definite Desired Control Method Implant Obstetrics History GPAL:G 1 P 1 0 0 1 Type Value Multiple Births 0 Full Term 1 Induced 0 Spontaneous 0 Premature 0 Living 1 Ectopics 0 Total 1 Immunizations Vaccine Type Date Status Note Provider Nam e and Address Organization Details Recorded Time HPV, unspecified formulation 9 completed Cynthia Vogt [place], [place] [facility] 12/15/2018 14:49:36 COVID-19, mRNA, LNP-S, PF, 30 mcg/0.3 mL dose 1 completed [place]ity[place] [facility] 09/01/2020 10:07:28 COVID-19, mRNA, LNP-S, PF, 30 mcg/0.3 mL dose 1 completed [place]ity[place] R[place] [facility] 09/01/2020 10:08:06 Tdap 7 completed Not Available [facility] 03/28/2019 02:33:31 Influenza, split virus, quadrivalent, preservative 7 completed Not Available [facility] 03/28/2019 02:48:31 Influenza, split virus, quadrivalent, preservative 6 completed Laurie Terrazas [place], [place] [facility] 02/07/2016 12:41:31 Past Encounters Encounter ID Performer Location Encounter Start Date Encounter Closed Date Diagnosis/Indication Diagnosis SNOMED-CT Code Diagnosis ICD10 Code Diagnosis Note [id number] Chacorta Agarwal ([facility]) [address] [place] [address] [id number] 0 01/10/2015 11:01:05 01/10/2015 13:45:25 Family planning surveillance 987577797 Z30.09 [id number] Chacorta Agarwal ([facility]) [address] [place] [address] [id number] 0 02/07/2016 11:08:03 02/08/2016 15:16:30 Routine care 336823795 Z34.01 unplanned but wanted 376154313 Z64.0 While on OCP. Abnormal progesterone 13 1940421 R94.7 [id number] MD [facility] ([facility]) [address] [place] [address] [id number] 0 02/28/2016 14:43:35 02/28/2016 16:11:04 Routine care 022083429 Z34.91 [id number] Chacorta Agarwal ([facility]) [address] [place] [address] 76605-543 0 04/03/2016 09:41:56 04/06/2016 16:29:13 Routine care 398631658 Z34.01 Abnormal progesterone 13 3537911 R94.7 [id number] Chacorta Agarwal ([facility]) [address] [place] [address] 78263-476 0 05/01/2016 14:54:49 05/02/2016 11:38:55 Routine care 142525399 Z34.01 Abnormal progesterone 13 2117288 R94.7 Vitamin D deficiency 347 83654 E55.9 Bacterial vaginosis 4197 76813 N76.0 [id number] Chacorta Agarwal ([facility]) [address] [place] [address] [id number] 0 05/29/2016 14:23:19 05/30/2016 16:58:48 Routine care 422704043 Z34.01 Abnormal progesterone 13 4000802 R94.7 Vitamin D deficiency 347 18694 E55.9 [id number] Chacorta Agarwal ([facility]) [address] [place] [address] 52060-933 0 06/26/2016 14:47:35 06/27/2016 16:30:41 Routine care 200175493 Z34.01 [id number] Chacorta Agarwal ([facility]) [address] [place] [address] 03405-796 0 07/23/2016 09:40:26 07/24/2016 14:36:17 Routine care 931777442 Z34.01 Diabetes m ellitus screening 131653634 Z13.1 Z13.9 Third trim edgardo 58536439 Z3A.28 [id number] ANGY Conde ([facility]) [address] [place] [address] 42115-036 0 08/28/2016 14:21:49 08/28/2016 15:42:01 Routine care 252546767 Z34.01 Sinusitis 39344598 J32.9 Family paty nning education 949124007 Z30.02 [id number] Chacorta Agarwal ([facility]) [address] [place] [address] [id number] 0 09/13/2016 10:44:20 09/13/2016 12:36:01 Routine care 554569194 Z34.01 [id number] ANGY Pereira ([facility]) [address] [place] [address] [id number] 0 09/19/2016 14:36:27 09/19/2016 15:23:29 Routine care 591084177 Z34.91 Abnormal progesterone 13 7313824 R94.7 [id number] Chacorta Agarwal ([facility]) [address] [place] [address] 34160-108 0 09/25/2016 15:40:36 09/28/2016 10:35:59 Routine care 028007002 Z34.01 Abnormal progesterone 13 3364039 R94.7 [id number] Chacorta Agarwal ([facility]) [address] [place] [address] [id number] 0 10/02/2016 14:27:05 10/02/2016 16:02:20 Routine care 707260281 Z34.01 [id number] Chacorta Agarwal ([facility]) [address] [place] [address] 05171-608 0 10/09/2016 11:30:42 10/09/2016 13:28:05 Routine care 467502349 Z34.01 Induce tonight at 8PM [id number] Chacorta Agarwal ([facility]) [address] [place] [address] [id number] 0 10/31/2016 14:11:45 11/01/2016 17:37:40 care 814380865 Z39.2 Disruption of episiotomy wound in the puerperium 020526600 O90.1 [id number] Chacorta Agarwal ([facility]) [address] [place] [address] 59020-456 0 11/26/2016 09:35:06 11/26/2016 12:06:02 care 119840220 Z39.2 will continue iron until 12 weeks PP Exposure t o sexually transmissible disorder 009926463 Z20.2 Family paty nning surveillance 479313293 Z30.09 wants nexplanon after December. Will use pills until then Vitamin D deficiency 347 59572 E55.9 [id number] Chacorta Agarwal ([facility]) [address] [place] [address] 94002-650 0 01/08/2017 10:10:41 01/08/2017 14:21:45 Insertion of subcutaneous contraceptive 115673545 Z30.017 Family paty nning surveillance 517693511 Z30.09 painful 20 8721513 N64.4 Administra tion of influenza vaccine 12422658 Z23 Genital he rpes simplex 52968952 A60.9 [id number] Chacorta Jennifer [facility] ([facility]) [address] [place] [address] [id number] 0 03/13/2017 09:48:24 03/13/2017 12:23:37 Subcutaneous contraceptive implant palpable 802961888 Z30.46 Family paty nning surveillance 337229132 Z30.09 [id number] [facility] [address] [place] [address] [id number] 0 01/04/2020 11:31:20 01/05/2020 10:33:58 Family planning surveillance 830954412 Z30.09 Insertion of subcutaneous contraceptive 483146878 Z30.017 Removal of subcutaneous contraceptive done 6068772058 53064 Z98.719 [id number] [facility] [address] [place] [address] [id number] 0 03/22/2020 07:59:12 03/23/2020 13:35:43 Genital herpes simplex 57787768 A60.9 Surveillan ce of subcutaneous contraceptive implant 355342225 Z30.46 Family paty nning surveillance 484233398 Z30.09 Health Concerns Section Related Observation LastModified by Organization Detai ls LastModified Time None Recorded Concern Status LastModified by Organization Details LastModified Time None Recorded Advance Directives Directive N: Payers Encounter Date Sequence Insurance Name Policy Number Policy Jett Covered Member ID Jett Member ID Guarantor Name 11/26/2016 1 [employer] Abbie Beto [id number] Abbie Bland 01/08/2017 1 [employer] Abbie Beto [id number] Abbie Bland 03/13/2017 1 90 [employer] Abbie Beto [id number] Abbie Bland 01/04/2020 1 [facility] [id number] Abbie Bland [id number] Abbie Peraltaett 03/22/2020 1 [facility] [id number] Abbie Edwina [id number] Abbie Edwina Notes Date Note Type Note Provider Name and Address Organization Details Recorded Time 11/26/2016 text/html VisitReported bypatient.Associated Symptoms:no abnormal bleeding; no pelvic pain; laceration well healed; no constipation; no fecal incontinence; no dysuria; no urinary incontinence; no fever; no problems; no mastitis 36 yo female here today for evaluation- pumping and supplementing with formula, mood stable. lochia has stopped. DANNIE Tee 11/28/2016 15:04:43 01/08/2017 text/html Breast ProblemsReported bypatient.Onset/Timing :1 week Duration:constant Quality:no bloody discharge; no brown discharge; no milky discharge; no yellow-clear discharge; no yellow-green discharge; improving; no mass;tender; nipple tenderness and decreased milk Context:prior mammogram normal; performs breast self-examination; no breast implants; no family history of breast cancer; no history of breast cancer; no radiation treatment; no chemotherapy; no cancer; no previous biopsies; no miscarriages; recent MRI normal; lymph node status negative Modifying Factors:no recent change in exercise habits; no recent changes in weight; no recent changes in diet; no recent changes in medication dosage of hormone replacement therapy Aggravating Factors:none Associated Symptoms:no fever; no chills; no breast reddening; no nipple discharge; no sore nipples; no nipple inversion; breasts feel normal; no breast swelling; no arm pain; no arm swelling; no chest pain; no malaise; no breast lump; no change in breast skin 36 y/o CF L1 here for Nexplanon placement and breast tenderness. Pt has h/o vaginal delivery on 10/10/16. She states that she has been getting a decrease in milk production and nipple soreness onset one week. DANNIE Tee 01/08/2017 13:57:12 03/13/2017 text/html OCP CheckReporte d bypatient.Associated Symptoms:regular menses; no BTB menses; no side effects 36 y/o CF L1 here for Nexplanon check. No complaints. DANNIE Tee - [facility] 03/14/2017 11:50:49 01/04/2020 text/html Annual GYNReport ed bypatient.Menstrual cycle:Normal menses Urinary symptoms:No hematuria; No incontinence Vulva:No genital lesion Vagina:Normal vaginal discharge Breast:No breast pain; No breast lump; No nipple discharge Sexual complaints:No sexual complaints; No pain during intercourse; Normal libido Menopausal Symptoms:No menopausal symptoms; Normal vaginal lubrication Psychological symptoms:No depression; No anxiety; No PMDDOCP CheckReported bypatient.Associated Symptoms:regular menses; no BTB menses; no side effects 39 y/o CF L1 here for Nexplanon Replacement Pt has h/o vaginal delivery on 10/10/16. Chacorta madison [facility] 01/04/2020 23:45:03 03/22/2020 text/html OCP CheckReporte d bypatient.Associated Symptoms:regular menses; no BTB menses; no side effects 39 y/o CF L1 here for Nexplanon check Pt has h/o vaginal delivery on 10/10/16. Chacorta [place] 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 Problem Name Start Date End Date Resolution Snomed Code Not e Abnormal progesterone 34405575 0 Vitamin D deficiency 05/01/2016 81654405 Bacterial vaginosis 05/01/2016 732485267 Amber Calculation Initial Amber Date Initial Exam Date Initial Exam Provider Initial Ultrasound Date Last Menstrual Period Date Ultra Sound Weeks Gestation 10/10/2016 02/07/2016 karl 02/28/2016 01/11/2016 7 Eighteen To Twenty Week Amber Update Ultra Sound Date Fundal Height At Umbil Quickening Date Ultra Sound Latest Weeks Gestation Final Amber Confirmed By Final Amber Confirmed Date Final Amber Date Ultra Sound Latest Days Gestation 02/28/20 16 7 [email or web address] 02/28/2016 10/11/19 17 6 Pre-kodak Flowsheet Flowsheet Date 02/07/2016 Otoole Score Blood Edema Fundus Height Fundus Units Glucose Ketones Leukocytes Nitrite Labor Signs Protein Cervic Dilation Cervic Effacement Cervic Station neg none none negative neg Type Weight in lbs Pre/Post Dialysis Refused 185.418208268926 BP Diastolic BP Location Tested BP Systolic BP Type 78 116 sitting Fetus Heart Rate Present Fetus Movement Comments NOB. Interior surprise! Flowsheet Date 02/28/2016 Otoole Score Blood Edema Fundus Height Fundus Units Glucose Ketones Leukocytes Nitrite Labor Signs Protein Cervic Dilation Cervic Effacement Cervic Station neg none none negative none neg Type Weight in lbs Pre/Post Dialysis Refused 183.817617245954 BP Diastolic BP Location Tested BP Systolic BP Type 66 108 sitting Fetus Heart Rate Present A 158 Present Fetus Movement A No Comments precautions discuss ed. Reviewed lab work,Nuswab and PAP. D/W patient all test results. Ultrasound done today. Requested nurse Joanne to get the records. Got US report. Reviewed. FHT 158 by ultrasound. Single IUP 7WKS 6 days. AMBER 10/10/16 Flowsheet Date 04/03/2016 Otoole Score Blood Edema Fundus Height Fundus Units Glucose Ketones Leukocytes Nitrite Labor Signs Protein Cervic Dilation Cervic Effacement Cervic Station neg none 12 wks none negative none neg Type Weight in lbs Pre/Post Dialysis Refused 184.972575835879 BP Diastolic BP Location Tested BP Systolic BP Type 82 118 sitting Fetus Heart Rate Present A 158 Present Fetus Movement A No Comments first screen today, going fo r US Flowsheet Date 05/01/2016 Otoole Score Blood Edema Fundus Height Fundus Units Glucose Ketones Leukocytes Nitrite Labor Signs Protein Cervic Dilation Cervic Effacement Cervic Station neg none 16 wks negative none neg Type Weight in lbs Pre/Post Dialysis Refused 190.408735559748 BP Diastolic BP Location Tested BP Systolic BP Type 82 116 sitting Fetus Heart Rate Present A 148 Present Fetus Movement A No Comments afp/prog/us Flowsheet Date 05/29/2016 Otoole Score Blood Edema Fundus Height Fundus Units Glucose Ketones Leukocytes Nitrite Labor Signs Protein Cervic Dilation Cervic Effacement Cervic Station neg none 19 cm none negative none neg Type Weight in lbs Pre/Post Dialysis Refused 192.646827477664 BP Diastolic BP Location Tested BP Systolic BP Type 72 100 sitting Fetus Heart Rate Present A 143 Present Fetus Movement A Yes Comments It's a girl. Name unknown. L abs/US normal Flowsheet Date 06/26/2016 Otoole Score Blood Edema Fundus Height Fundus Units Glucose Ketones Leukocytes Nitrite Labor Signs Protein Cervic Dilation Cervic Effacement Cervic Station neg none 24 cm none negative none neg Type Weight in lbs Pre/Post Dialysis Refused 198.393957110956 BP Diastolic BP Location Tested BP Systolic BP Type 78 108 sitting Fetus Heart Rate Present A 137 Present Fetus Movement A Yes Comments Flowsheet Date 07/23/2016 Otoole Score Blood Edema Fundus Height Fundus Units Glucose Ketones Leukocytes Nitrite Labor Signs Protein Cervic Dilation Cervic Effacement Cervic Station neg none 28 wks trace negative none neg Type Weight in lbs Pre/Post Dialysis Refused 203.66560493142 BP Diastolic BP Location Tested BP Systolic BP Type 74 118 sitting Fetus Heart Rate Present A 134 Present Fetus Movement A Yes Comments 1 hour GTT and TDAP 07/23/16 Flowsheet Date 08/28/2016 Otoole Score Blood Edema Fundus Height Fundus Units Glucose Ketones Leukocytes Nitrite Labor Signs Protein Cervic Dilation Cervic Effacement Cervic Station neg 1+ 34 wks none negative none neg Type Weight in lbs Pre/Post Dialysis Refused 205.842603762331 BP Diastolic BP Location Tested BP Systolic BP Type 66 110 sitting Fetus Heart Rate Present A 148 Present Fetus Movement A Yes Comments HYDROTHERAPY, SINUSITIS Flowsheet Date 09/13/2016 Otoole Score Blood Edema Fundus Height Fundus Units Glucose Ketones Leukocytes Nitrite Labor Signs Protein Cervic Dilation Cervic Effacement Cervic Station neg none 35 cm none negative none neg 0cm 80% - 3 Type Weight in lbs Pre/Post Dialysis Refused 209.302890707322 BP Diastolic BP Location Tested BP Systolic BP Type 78 118 sitting Fetus Heart Rate Present A 140 Present Fetus Movement A Yes Comments 36 wk: US, Labs, Cultures co mpleted Flowsheet Date 09/19/2016 Otoole Score Blood Edema Fundus Height Fundus Units Glucose Ketones Leukocytes Nitrite Labor Signs Protein Cervic Dilation Cervic Effacement Cervic Station neg none 36 cm none negative none neg 2cm 60% - 4 Type Weight in lbs Pre/Post Dialysis Refused 210.929796638281 BP Diastolic BP Location Tested BP Systolic BP Type 62 110 sitting Fetus Heart Rate Present A 138 Present Fetus Movement A Yes Comments Labor, PREECLAMPSIA PRECAUTI ONS AND KICK COUNTS DISCUSSEDShe say Dr. Rodriguez wanted her to continue progesterone until next week and she say she is about to refill . She wanted to pay only for 1 week instead of 30 day supply. Flowsheet Date 09/25/2016 Otoole Score Blood Edema Fundus Height Fundus Units Glucose Ketones Leukocytes Nitrite Labor Signs Protein Cervic Dilation Cervic Effacement Cervic Station trace 1+ 30 cm none negative none neg 1cm 80% -1 Type Weight in lbs Pre/Post Dialysis Refused 211.871190272180 BP Diastolic BP Location Tested BP Systolic BP Type 66 108 sitting Fetus Heart Rate Present A 136 Present Fetus Movement A Yes Comments Advised to stop progesterone after today's dose/DURGA in 1 week Flowsheet Date 10/02/2016 Otoole Score Blood Edema Fundus Height Fundus Units Glucose Ketones Leukocytes Nitrite Labor Signs Protein Cervic Dilation Cervic Effacement Cervic Station neg 1+ negative none Type Weight in lbs Pre/Post Dialysis Refused 215.736490552835 BP Diastolic BP Location Tested BP Systolic BP Type 74 118 sitting Fetus Heart Rate Present A 148 Present Fetus Movement A Yes Comments Flowsheet Date 10/09/2016 Otoole Score Blood Edema Fundus Height Fundus Units Glucose Ketones Leukocytes Nitrite Labor Signs Protein Cervic Dilation Cervic Effacement Cervic Station neg none 32 cm none negative none neg 4cm 80% - 2 Type Weight in lbs Pre/Post Dialysis Refused 214.882667054579 BP Diastolic BP Location Tested BP Systolic BP Type 90 120 sitting Fetus Heart Rate Present A 138 Present Fetus Movement A Yes Comments Induction tonight at 8PM. In structions provided. GBS negative. Flowsheet Date 10/31/2016 Otoole Score Blood Edema Fundus Height Fundus Units Glucose Ketones Leukocytes Nitrite Labor Signs Protein Cervic Dilation Cervic Effacement Cervic Station Type Weight in lbs Pre/Post Dialysis Refused 197.671686270056 BP Diastolic BP Location Tested BP Systolic BP Type 62 124 sitting Fetus Heart Rate Present Fetus Movement Comments Flowsheet Date 11/26/2016 Otoole Score Blood Edema Fundus Height Fundus Units Glucose Ketones Leukocytes Nitrite Labor Signs Protein Cervic Dilation Cervic Effacement Cervic Station Type Weight in lbs Pre/Post Dialysis Refused 202.528240164275 BP Diastolic BP Location Tested BP Systolic BP Type Fetus Heart Rate Present Fetus Movement Comments Menstrual History Last Menstrual Date Menses Monthly On Bcp Conception Prior Menses Frequency Hcg Plus Date Menarche Onset Age 1101/11/2016 true 28 11 Genetic Screening And Infection History Question Response Note Patient's Age Will Be 35 Years Or Older At Estim ated Date of Delivery false Thalassemia (Slovenian, Burundian, Mediterranean, Or Background): MCV < 80 false Neural Tube Defect (Meningomyelocele, Spina Bifi da, Or Anencephaly) false Congenital Heart Defect false Down Syndrome false Arnie-Sachs (eg, Jew, Cajun, Latvian-Vandalia) f alse Dixon Disease false Sickle Cell Disease Or Trait () false Hemophilia Or Other Blood Disorders false Muscular Dystrophy false Cystic Fibrosis false Jyoti's Chorea false Mental Retardation/Autism false If Yes, Was Person Tested For Fragile X? false Other Inherited Genetic Or Chromosomal Disorder false Maternal Metabolic Disorder (eg, Type 1 Diabetes , PKU) false Patient Or Baby's Father Had A Child With Defects Not Listed Above false Recurrent Loss, Or A Stillbirth false Medications (including Suppl ements, Vitamins, Herbs, OTC Drugs), Illicit/Recreational Drugs, Alcohol false If Yes, Agent(s) And Strength/Dosage false Any Other Genetic History false Live With Someone With TB Or Exposed To TB false Patient Or Partner Has History Of Genital Herpes false Rash Or Viral Illness Since Last Menstrual Perio d false History Of STD, Gonorrhea, Chlamydia, HPV, Syphi lis false Other Infection History false Plans and Education First Trimester Discussed Date Discussion Item Discussion Note Discuss ed By 02/07/2016 Anticipated course of care 02/07/2016 Alcohol [email or web address] 02/07/2016 Intimate partner violence ms jyrxnm82 02/07/2016 Environmental/work hazards m qoekrzg90 02/07/2016 Screening for aneuploidy msi mpson19 02/07/2016 Nutrition counseling ; special diet; dietary precautions (mercury, listeriosis) [email or web address] 02/07/2016 Childbirth classes/hospital facilities 02/07/2016 HIV and other routine tests igrozgkw27 02/07/2016 Risk factors identif ied by history 02/07/2016 Weight gain counseling [facility] son19 02/07/2016 Exercise [email or web address] 02/07/2016 Teratogens [email or web address] 02/07/2016 Use of any medicatio ns (including supplements, vitamins, herbs, or OTC drugs) mwifycls73 02/07/2016 breastfeed stcqojvd29 02/07/2016 Sexual activity mistglvt84 02/07/2016 Tobacco/smoking cess ation counseling (ask, advise, assess, assist, and arrange) jcfenmjl74 02/07/2016 Illicit/recreational drugs [place] [address] 02/07/2016 Dental care ldzbfucv37 02/07/2016 Travel soaiggzt99 02/07/2016 Seat belt use eqruipgn45 02/07/2016 Indications for ultrasonography qtwdyvzu67 02/07/2016 Avoidance of saunas or hot tubs obfwddlt16 02/07/2016 Toxoplasmosis precautions (cats/raw meat) [place] [address] Second Trimester Discussed Date Discussion Item Discussion Note Discuss ed By 08/28/2016 Selecting a care provider [facility] [email or web address] 08/28/2016 family planning/tubal sterilization 08/28/16 PPBC ti be discussed, pt thinking Nexplanon, cb-rmaNE 0.35mg while then nex cbradshaw5 09/19/2016 [facility]when indicated[facility] 09/19/2016 Abnormal lab values [facility] 09/19/2016 Signs and symptoms [facility] f [facility] Intimate partner violence uyyrussu 09/19/2016 Tobacco/smoking cess ation counseling (ask, advise, assess, assist, and arrange) [facility] Third Trimester Discussed Date Discussion Item Discussion Note Discuss ed By 09/19/2016 Intimate partner violence kyawyyrussu 08/28/2016 Anesthesia plans 08/28/16 yes to epidural cb-rma cbradshaw5 09/19/2016 education (n ewborn screening, jaundice, SIDS/safe sleeping position, car seat) [facility] 08/28/2016 Circumcision 08/28/16 baby gi rl, if boy both parents undecided on circ, cb-rma cbradshaw5 09/19/2016 [facility]2016 movement monitoring kick counts sv russu 08/28/2016 breast feed, cb-rma radsh aw5 09/19/2016 Labor signs wtc/wlb [facility] 09/[facility]/[address] [facility] 08/28/2016 Family medical leave or disability forms 08/28/16 pt to bring in FLMA papers, [facility] 09/19/2016 Tobacco/smoking cess ation counseling (ask, advise, assess, assist, and arrange) [facility] 09/19/2016 Trial of labor after (TOLAC) counseling [facility] 09/19/2016 Signs and symptoms o f preeclampsia [facility] Delivery Information Delivery Date Delivery Type Labor Anesthesia Weeks Gestation Incision Type Labor Labor Length Hrs Delivered By Post Complications Tubal Sterilization Discharge Date Comments 7 Induce d Local [address] Rodriguez None false 10/12/2016 [facility] failed Discharge Information Feeding Method Contraceptive Method Maternal HG B and HCT Levels Combination
--- OUTSIDE RECORDS SUMMARY | 2024-05-29 12:03 | XMS_ITS | Encounter Summary ---
Author Organization [facility] Address [address] [place] [address] Care Team Providers Care Gaming Associate Name Role Phone Unavailable Primary Care Provider Unavailabl e Encounter Details Date Type Department Care Team (Late st Contact Info) Description 04/12/2022 Lab Requisition [facility] DermPath Lab [address] [place] [id number] Colton Hutton MD [address] [place], [place] [id number] Social History Tobacco Use Types Packs/Day Years Used Date Smoking Tobacco: Never Assessed Sex and Gender Information Value Date Recorded Sex Assigned at Not on file Gender Identity Not on file Sexual Orientation Not on file documented as of this encounter Plan of Treatment Not on file documented as of this encounter Procedures Procedure Name Priority Date/Time Associated Diagnosis Comments DERMATOPATHOLOGY Routine 04/11/2022 12:0 0 AM ASPHALT MACHINE OPERATOR documented in this encounter Results * DERMATOPATHOLOGY (04/11/2022 12:00 AM ASPHALT MACHINE OPERATOR) Case Report Dermatopathology Report Case: [id number] Authorizing Provider: Colton Hutton MD Collected: 04/11/2022 12:00 AM Ordering Location: [facility] Derm[facility] Lab Received: 04/12/2022 09:12 AM Pathologist: Michaela Quiles MD Specimen: Skin, mid chest 3 5:46 PM ASPHALT MACHINE OPERATOR DERMATOPATHOLOGY LABORATORY Final Diagnosis Specimen A. SKIN, mid chest: EPIDERMOID CYST (L72.0) NOT PRESENT AT SAMPLED MARGIN 3 5:46 PM ASPHALT MACHINE OPERATOR DERMATOPATHOLOGY LABORATORY Clinical History Cyst. Please Check Margins. Path# [id number] 5:46 PM [facility] Gross Description Specimen A: Received is one formalin filled container labeled with the patient's name and designated mid chest. The specimen consists of a [id number] piece of skin that is inked and bisected. Jar 0. 5:46 PM [facility] Microscopic Description Specimen A. SKIN, mid chest: Within the dermis, there is a space lined by epithelium that resembles normal epidermis and the infundibular portion of the hair follicle. This lesion is not present at the sampled margin of the specimen. 5:46 PM [facility] Disclaimer An external and internal positive and negative controls are appropriate for the histochemical, immunohistochemical and immunofluorescence stain(s) in this case (if any), except where stated explicitly. The performance characteristics of the stain(s) cited in this report were developed and its performance characteristic determined by the Dermatopathology Laboratory at [facility], directed by Dr. Jyothi Royal. These tests need not be, and therefore are not, approved by the [place] Food and Drug Administration. The tests are used for clinical purposes. Billing Codes Specimen Charges Stain Charges 86032 1 5:46 PM [facility] Embedded Images 5:46 PM [facility] Pathology/Cytolog y TISSUE SPECIMEN FROM SKIN / Unknown 04/11/2022 04/12/2022 9:12 AM [facility] Colton Hutton MD LAB - PATHOLOGY/CYTO LOGY ORDERABLES DERMATOPATHOLOGY LABORATORY [facility] - Department of Dermatology [address], [address] [phone] documented in this encounter Visit Diagnoses Not on filedocumented in this encounter
--- OUTSIDE RECORDS SUMMARY | 2024-05-29 12:03 | XMS_ITS | Encounter Summary ---
Author Organization [facility] Address [address] [place] [address] Care Team Providers Care Supervisor Coating Name Role Phone Unavailable Primary Care Provider Unavailabl e Encounter Details Date Type Department Care Team (Late st Contact Info) Description 01/26/2022 Lab Requisition [facility] DermPath Lab [address] [place] [phone] Colton Hutton MD [address] [place], [place] [id number] Social History Tobacco Use Types Packs/Day Years Used Date Smoking Tobacco: Never Assessed Sex and Gender Information Value Date Recorded Sex Assigned at Not on file Gender Identity Not on file Sexual Orientation Not on file documented as of this encounter Plan of Treatment Not on file documented as of this encounter Procedures Procedure Name Priority Date/Time Associated Diagnosis Comments DERMATOPATHOLOGY Routine 01/24/2022 12:0 0 AM PATENT COUNSEL documented in this encounter Results * DERMATOPATHOLOGY (01/24/2022 12:00 AM PATENT COUNSEL) Case Report Dermatopathology Report Case: [id number] Authorizing Provider: Colton Hutton MD Collected: 01/24/2022 12:00 AM Ordering Location: [facility] DermPath Lab Received: 01/26/2022 07:46 AM Pathologist: Esperanza Ruiz MD Specimen: Skin, right cheek 2 1:11 PM PATENT COUNSEL DERMATOPATHOLOGY LABORATORY Final Diagnosis Specimen A. SKIN, right cheek: INTRADERMAL MELANOCYTIC NEVUS (D22.39) 2 1:11 PM PATENT COUNSEL DERMATOPATHOLOGY LABORATORY Clinical History Nevus vs. R/O atypia PATH#[id number] 2 1:11 PM [facility] DERMATOPATHOLOGY LABORATORY Gross Description Specimen A: Received is one formalin filled container labeled with the patient's name and designated right cheek. The specimen consists of a shave biopsy measuring 6x5x2 and 4x3x1 mm. Jar 0. 2 1:11 PM [facility] DERMATOPATHOLOGY LABORATORY Microscopic Description Specimen A. SKIN, right cheek: There are nests of cytologically bland melanocytes within the dermis that mature with depth. 2 1:11 PM [facility] DERMATOPATHOLOGY LABORATORY Disclaimer An external and internal positive and negative controls are appropriate for the histochemical, immunohistochemical and immunofluorescence stain(s) in this case (if any), except where stated explicitly. The performance characteristics of the stain(s) cited in this report were developed and its performance characteristic determined by the Dermatopathology Laboratory at [facility], directed by Dr. Jyothi Royal. These tests need not be, and therefore are not, approved by the [place] Food and Drug Administration. The tests are used for clinical purposes. Billing Codes Specimen Charges Stain Charges 42942 1 2 1:11 PM [facility] DERMATOPATHOLOGY LABORATORY Embedded Images 2 1:11 PM [facility] DERMATOPATHOLOGY LABORATORY Pathology/Cytolog y TISSUE SPECIMEN FROM SKIN / Unknown 01/24/2022 01/26/2022 7:46 AM PATENT COUNSEL Colton Hutton MD LAB - PATHOLOGY/CYTO LOGY ORDERABLES DERMATOPATHOLOGY LABORATORY [facility] - Department of Dermatology [address], [address] [phone] documented in this encounter Visit Diagnoses Not on filedocumented in this encounter
--- OUTSIDE RECORDS SUMMARY | 2024-05-29 12:03 | XMS_ITS | Referral Summary ---
Author Organization [facility] Address [address] [place] [id number] Phone Care Team Providers Care Associate Software Engineer Name Role Phone Marjan Cuba NP Primary Care Provider [phone] Neda Del Toro MD Unavailable [phone] Allergies No known active allergies Medications PNV [...] Comments Blood Pressure 128/80 01/19/2024 5:24 PM PICK UP Pulse 86 01/19/2024 5:24 PM PICK UP Temperature 37.1 C (98.8 F) 01/19/2024 5:24 PM PICK UP Respiratory Rate 18 01/19/2024 5:24 PM PICK UP Oxygen Saturation 97% 01/19/2024 5:24 PM PICK UP Inhaled Oxygen Concentration - - Weight 94.7 kg (208 lb 12.8 oz) 01/19/2024 5:24 PM PICK UP Height - - Body Mass Index - - Plan of Treatment Not on file Procedures Procedure Name Priority Date/Time Associated Diagnosis [...] Most Recently Relevant to Health Maintenance Insurance [facility] Care Teams Associate Software Engineer Relationship Specialty Start Date End Date Marjan Cuba NP [address] [address] PCP - General Family Medicine 09/07/22 Neda Del Toro MD [address] [facility] [address] [place] [address] Obstetrics and Gynecology 11/07/22
--- OUTSIDE RECORDS SUMMARY | 2024-05-29 12:04 | XMS_ITS | Clinical Summary ---
Author Organization [facility] Address [address] [place] [address] Care Team Providers Care Sandblast Or Shotblast Equipment Tender Name Role Phone Cuba Marjan NICOLE Primary Care Provider [phone] Allergies No known active allergies Medications etonogestrel (NEXPLANON) 68 MG SC implant Nexplanon 68 mg subdermal implant Inject 1 implant by subcutaneous route. Active Family History Medical History Relation Comments Hyperlipidemia Father Hypertension Father Cancer Mother ovarian Relation Status Comments Father Alive Mother Alive Social History Tobacco Use Types Packs/Day Years Used Date Smoking Tobacco: Never Passive Smoke Exposure: Never Smokeless Tobacco: Never Tobacco Cessation:Counseling Given: Not Answered Alcohol Use Standard Drinks/Week Comments Yes 0 (1 standard drink = 0.6 oz pur e alcohol) rare use Comments No Sex and Gender Information Value Date Recorded Sex Assigned at Not on file Legal Sex Female 1:27 PM SALVAGE ENGINEER Gender Identity Not on file Sexual Orientation Not on file Last Filed Vital Signs Vital Sign Reading Time Taken Comments Blood Pressure 152/84 03/08/2022 1:49 PM SALVAGE ENGINEER Pulse 107 03/08/2022 1:49 PM SALVAGE ENGINEER Temperature 36.6 C (97.8 F) 03/08/2022 1:49 PM SALVAGE ENGINEER Respiratory Rate 16 03/08/2022 1:49 PM SALVAGE ENGINEER Oxygen Saturation 100% 03/08/2022 1:49 PM SALVAGE ENGINEER Inhaled Oxygen Concentration - - Weight 99.8 kg (220 lb) 03/08/2022 1:49 PM SALVAGE ENGINEER Height 162.6 cm (5' 4 ) 03/08/2022 1:49 PM SALVAGE ENGINEER Body Mass Index 37.76 03/08/2022 1:49 PM SALVAGE ENGINEER Plan of Treatment Health Maintenance Due Date Last Done Comments Cervical Cancer Screening Pap Smear (Age 30 to 64) Every 3 Years 1982 Annual Physical 1985 Hepatitis C 2000 Hepatitis B Vaccines (1 of 3 - 19+ 3-dose series) 2001 Cervical Cancer Screening Pap with HPV Testing (Age 30 to 64) Every 5 Years 2012 Cervical Cancer Screening with HPV 2012 HPV Vaccines (2 - 3-dose SCDM series) 12/31/2018 12/03/2018 Mammogram Screening 2022 COVID-19 Vaccine ( season) 2023 01/10/2022, 02/20/2021, 06/15/2020, Additional history exists Influenza Adult (#1) 2023 01/10/2022, 12/28/2019, 01/08/2017, Additional history exists DTaP, Tdap and Td Vaccines (2 - Td or Tdap) 07/23/2026 07/23/2016 Meningococcal B Vaccine Aged Out No l onger eligible based on patient's age to complete this topic Meningococcal Vaccine Aged Out No marta ronel eligible based on patient's age to complete this topic Pneumococcal Vaccine: Pediatrics (0 to 5 Years) and At-Risk Patients (6 to 64 Years) Aged Out No longer eligible based on patient's age to complete this topic RSV Immunizations Under 20 Months Aged Out No longer eligible based on patient's age to complete this topic Insurance [employer] Care Teams Sandblast Or Shotblast Equipment Tender Relationship Specialty Start Date End Date Marjan Cuba APNP [address] [id number] PCP - General Nurse Practitioner Family 03/08/22
[2024-05-29 13:31] VITALS: BP 124/58; PULSE 98; RESP 18; TEMP 36.9; O2SAT 100
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
--- OUTSIDE RECORDS SUMMARY | 2024-05-29 13:54 | XMS_ITS | Referral Summary ---
Author Organization [facility] Address [address] [place] [address] Phone Care Team Providers Care Knockup Worker Name Role Phone Marjan Cuba NP Primary Care Provider [phone] Neda Del Toro MD Unavailable Allergies No known active allergies Medications PNV [...] Comments Blood Pressure 128/80 01/19/2024 5:24 PM PHARMACOMETRICIAN Pulse 86 01/19/2024 5:24 PM PHARMACOMETRICIAN Temperature 37.1 C (98.8 F) 01/19/2024 5:24 PM PHARMACOMETRICIAN Respiratory Rate 18 01/19/2024 5:24 PM PHARMACOMETRICIAN Oxygen Saturation 97% 01/19/2024 5:24 PM PHARMACOMETRICIAN Inhaled Oxygen Concentration - - Weight 94.7 kg (208 lb 12.8 oz) 01/19/2024 5:24 PM PHARMACOMETRICIAN Height - - Body Mass Index - [...] Most Recently Relevant to Health Maintenance Insurance [facility] Care Teams Knockup Worker Relationship Specialty Start Date End Date Marjan Cuba NP [address] [employer] [address] PCP - General Family Medicine 09/07/22 Neda Del Toro MD [address] [facility] [address] [place] [address] Obstetrics and Gynecology 11/07/22
--- OUTSIDE RECORDS SUMMARY | 2024-05-29 13:54 | XMS_ITS | Clinical Summary ---
Author Organization [facility] Address [address] [place] [address] Care Team Providers Care Semiconductor Wafers Saw Operator Name Role Phone Cuba Marjan NICOLE Primary Care Provider [phone] Allergies No known active allergies Medications etonogestrel [...] on file Legal Sex Female 1:27 PM SEX THERAPIST Gender Identity Not on file Sexual Orientation Not on file Last Filed Vital Signs Vital Sign Reading Time Taken Comments Blood Pressure 152/84 03/08/2022 1:49 PM SEX THERAPIST Pulse 107 03/08/2022 1:49 PM SEX THERAPIST Temperature 36.6 C (97.8 F) 03/08/2022 1:49 PM SEX THERAPIST Respiratory Rate 16 03/08/2022 1:49 PM SEX THERAPIST Oxygen Saturation 100% 03/08/2022 1:49 PM SEX THERAPIST Inhaled Oxygen Concentration - - Weight 99.8 kg (220 lb) 03/08/2022 1:49 PM SEX THERAPIST Height 162.6 cm (5' 4 ) 03/08/2022 1:49 PM SEX THERAPIST Body Mass Index 37.76 03/08/2022 1:49 PM SEX THERAPIST Plan of Treatment Health Maintenance Due Date [...] complete this topic Insurance [employer] Care Teams Semiconductor Wafers Saw Operator Relationship Specialty Start Date End Date Marjan Cuba APNP [address] [phone] PCP - General Nurse Practitioner Family 03/08/22
--- OUTSIDE RECORDS SUMMARY | 2024-05-29 13:54 | XMS_ITS | Encounter Summary ---
Author Organization [facility] Address [address] [place] [address] Care Team Providers Care Entertainer Or Variety Artist Name Role Phone Unavailable Primary Care Provider Unavailabl e Encounter Details Date Type Department Care Team (Late st Contact Info) Description 04/12/2022 Lab Requisition [facility] DermPath Lab [address] [place] [phone] Colton Hutton MD [address] [place], [place] [id number] Social History Tobacco Use Types Packs/Day Years [...] Comments DERMATOPATHOLOGY Routine 04/11/2022 12:0 0 AM [facility] documented in this encounter Results * DERMATOPATHOLOGY (04/11/2022 12:00 AM [facility]) Case Report Dermatopathology Report Case: [id number] Authorizing Provider: Colton Hutton MD Collected: 04/11/2022 12:00 AM Ordering Location: [facility] DermPath Lab Received: 04/12/2022 09:12 AM Pathologist: Michaela Quiles MD Specimen: Skin, mid chest 3 5:46 PM [facility] DERMATOPATHOLOGY LABORATORY Final Diagnosis Specimen A. SKIN, mid chest: EPIDERMOID CYST (L72.0) NOT PRESENT AT SAMPLED MARGIN 3 5:46 PM [facility] DERMATOPATH[facility] LABORATORY Clinical History Cyst. Please Check Margins. Path# [id number] 5:46 PM [facility] DERMATOPATHOLOGY LABORATORY Gross Description Specimen A: Received is one formalin filled container labeled with the patient's name and designated mid chest. The specimen consists of a [id number] piece of skin that is inked and bisected. Jar 0. 5:46 PM [facility] DERMATOPATHOLOGY LABORATORY Microscopic Description Specimen A. SKIN, mid chest: Within the dermis, there is a space lined by epithelium that resembles normal epidermis and the infundibular portion of the hair follicle. This lesion is not present at the sampled margin of the specimen. 5:46 PM [facility] DERMATOPATHOLOGY LABORATORY Disclaimer An external and internal positive and negative controls are appropriate for the histochemical, immunohistochemical and immunofluorescence stain(s) in this case (if any), except where stated explicitly. The performance characteristics of the stain(s) cited in this report were developed and its performance characteristic determined by the Dermatopathology Laboratory at [facility], directed by Dr. Jyothi Royal. These tests need not be, and therefore are not, approved by the [place] Food and Drug Administration. The tests are used for clinical purposes. Billing Codes Specimen Charges Stain Charges 53484 1 5:46 PM [facility] DERMATOPATHOLOGY LABORATORY Embedded Images 5:46 PM [facility] DERMATOPATHOLOGY LABORATORY Pathology/Cytolog y TISSUE SPECIMEN FROM SKIN / Unknown 04/11/2022 04/12/2022 9:12 AM [facility] Colton Hutton MD LAB - PATHOLOGY/CYTO LOGY ORDERABLES DERMATOPATHOLOGY LABORATORY [facility] - Department of Dermatology [address], [address] [phone] documented in this encounter Visit Diagnoses Not on filedocumented in this encounter
--- OUTSIDE RECORDS SUMMARY | 2024-05-29 13:54 | XMS_ITS | Clinical Summary ---
Author Organization [facility] Address [address] [facility] [place] [address] Care Team Providers Care Service Delivery Analyst Name Role Phone Unavailable Primary Care Provider Unavailabl e Source Comments [facility],non-owned Affiliates and Associated Physician Practices is amultiple site organization consisting of ambulatory clinics and hospital sitesin [place], [place], [place] and [place]. This disclosure is being madepursuant to the Care Everywhere program and may not contain all information available regarding this patient. Last updated 17.[employer] Allergies No known active allergies Medications * Be aware that medications may not be up to date on this document. Alwaysverify current medications with the patient. Medication Sig Dispensed Refills Start Date End Date Status Glucagon (Baqsimi One Pack) 3 MG/DOSE POWD [place] 3 mg into the nose as needed [...] APART. INCREASE DIRECTED DURING . MAX DAILY [id number] UNITS. REASONS: TYPE 2 DIABETES Reasons: Type [...]
--- OUTSIDE RECORDS SUMMARY | 2024-05-29 13:54 | XMS_ITS | Clinical Summary ---
Author Organization [facility] Address [address] [place] [address] [place] [address] Phone Care Team Providers Care Software Qa System Specialist Name Role Phone Marjan Cuba NP Primary Care Provider [phone] Neda Del Toro MD Unavailable [phone] Allergies No known active allergies Medications PNV [...] Comments Blood Pressure 128/80 01/19/2024 5:24 PM INTERNAL AUDIT MANAGER Pulse 86 01/19/2024 5:24 PM INTERNAL AUDIT MANAGER Temperature 37.1 C (98.8 F) 01/19/2024 5:24 PM INTERNAL AUDIT MANAGER Respiratory Rate 18 01/19/2024 5:24 PM INTERNAL AUDIT MANAGER Oxygen Saturation 97% 01/19/2024 5:24 PM INTERNAL AUDIT MANAGER Inhaled Oxygen Concentration - - Weight 94.7 kg (208 lb 12.8 oz) 01/19/2024 5:24 PM INTERNAL AUDIT MANAGER Height - - Body Mass Index [...] Most Recently Relevant to Health Maintenance Insurance [employer] [place] Care Teams Software Qa System Specialist Relationship Specialty Start Date End Date Marjan Cuba NP [address] [address] PCP - General Family Medicine 09/07/22 Neda Del Toro MD [address] [place] [address] Obstetrics and Gynecology 11/07/22
--- OUTSIDE RECORDS SUMMARY | 2024-05-29 13:54 | XMS_ITS | Encounter Summary ---
Author Organization [facility] Address [address] [facility] [place] [address] Care Team Providers Care Perforator Loader Name Role Phone Unavailable Primary Care Provider Unavailabl e Reason for Visit * Reason Onset Date Comments MEDICATION REFILL 09/27/2023 Encounter Details Date Type Department Care Team (Late st Contact Info) Description 09/27/2023 Telephone [facility] [address] [facility] [place] [address] Godfrey Rowe MD [address] [place], [place] [phone] MEDICATION REFILL Social History Tobacco Use Types [...] Valle - 09/27/2023 2:16 PM CDT [facility] received[facility] she was suppose to receive an higher quantity for this medication. She only has one pen left and they wont refill until an order is placed for her to take 78 at night 78 in the morning. CB: [phone] documented in this encounter Plan of Treatment Not on file documented as of this encounter Visit Diagnoses Not on filedocumented in this encounter
--- OUTSIDE RECORDS SUMMARY | 2024-05-29 13:54 | XMS_ITS | Encounter Summary ---
Author Organization [facility] Address [address] [facility] [place] [address] Care Team Providers Care Receiving Distribution Station Operator Name Role Phone Unavailable Primary Care Provider Unavailabl e Encounter Details Date Type Department Care Team (Late st Contact Info) Description 01/26/2022 Lab Requisition [facility] DermPath Lab [address] [facility] [facility] [place] [phone] Colton Hutton MD [address] [place], [place] [phone] Social History Tobacco Use Types Packs/Day Years [...] Comments DERMATOPATHOLOGY Routine 01/24/2022 12:0 0 AM OBSTETRICS NURSE documented in this encounter Results * DERMATOPATHOLOGY (01/24/2022 12:00 AM OBSTETRICS NURSE) Case Report Dermatopathology Report Case: [id number] Authorizing Provider: Colton Hutton MD Collected: 01/24/2022 12:00 AM Ordering Location: [facility] DermPath Lab Received: 01/26/2022 07:46 AM Pathologist: Esperanza Ruiz MD Specimen: Skin, right cheek 2 1:11 PM OBSTETRICS NURSE DERMATOPATHOLOGY LABORATORY Final Diagnosis Specimen A. SKIN, right cheek: INTRADERMAL MELANOCYTIC NEVUS (D22.39) 2 1:11 PM OBSTETRICS NURSE DERMATOPATHOLOGY LABORATORY Clinical History Nevus vs. R/O atypia PATH#[id number] 2 1:11 PM [facility] DERMATOPATHOLOGY LABORATORY Gross Description Specimen A: Received is one formalin filled container labeled with the patient's name and designated right cheek. The specimen consists of a shave biopsy measuring 6x5x2 and 4x3x1 mm. Jar 0. 2 1:11 PM [facility] DERMATOPATHOLOGY LABORATORY Microscopic Description Specimen A. SKIN, right cheek: There are nests of cytologically bland melanocytes within the dermis that mature with depth. 2 1:11 PM [facility] DERMATOPATHOLOGY LABORATORY Disclaimer An external and internal positive and negative controls are appropriate for the histochemical, immunohistochemical and immunofluorescence stain(s) in this case (if any), except where stated explicitly. The performance characteristics of the stain(s) cited in this report were developed and its performance characteristic determined by the Dermatopathology Laboratory at [facility], directed by Dr. Jyothi Royal. These tests need not be, and therefore are not, approved by the [place] Food and Drug Administration. The tests are used for clinical purposes. Billing Codes Specimen Charges Stain Charges 93730 1 2 1:11 PM [facility] DERMATOPATHOLOGY LABORATORY Embedded Images 2 1:11 PM [facility] DERMATOPATHOLOGY LABORATORY Pathology/Cytolog y TISSUE SPECIMEN FROM SKIN / Unknown 01/24/2022 01/26/2022 7:46 AM OBSTETRICS NURSE Colton Hutton MD LAB - PATHOLOGY/CYTO LOGY ORDERABLES DERMATOPATHOLOGY LABORATORY [facility] - Department of Dermatology [address], [address] [phone] documented in this encounter Visit Diagnoses Not on filedocumented in this encounter
--- NOTE | 2024-05-29 14:04 | ECG_ITS ---
Test Date: 2024-05-29 14:54:14 Measurements Intervals [place] Rate: 74 P: 42 NJ: 155 QRS: 39 QRSD: 89 T: 58 QT: 377 QTc: 419 Interpretive Statements SINUS RHYTHM POSSIBLE LEFT ATRIAL ENLARGEMENT [-0.1mV P WAVE IN V1/V2] INCOMPLETE RIGHT BUNDLE BRANCH BLOCK No previous ECG available for comparison Electronically Signed On 05-29-2024 18:39:29 CDT by Savi Curry M.D.
[2024-05-29] MEDS: HYDROcodone/acetaminophen (*CRX) 5-325 MG TABLET 1 TAB PO (14:43)
[2024-05-29 15:01] LABS: Add Urine Microscopic? YES; Appearance Urine Clear (Clear); Bacteria Urine 1+ /hpf; Bilirubin Urine Negative (Negative); Blood Urine Negative (Negative); Color Urine Yellow (Yellow); Glucose Urine UA Negative (Negative); Ketones Urine Negative (Negative); Leukocyte Esterase Ur 3+ LEU/UL (Negative); Nitrate Urine Negative (Negative); Non Pathogenic Casts 0-2; Protein Urine Negative (Negative); RBC Urine 0-2 /hpf (0-2); Specific Grav Ur 1.017 (1.001-1.035); Squamous Epithelial Cell Urine Occasional /hpf (Few); Urobilinogen Urine 0.2 mg/dL (<2.0); WBC Urine 21-50 /hpf (0-3)
[2024-05-29] MEDS: SULFAMETHOXAZOLE/TRIMETHOPRIM 800/160 MG DS TABLET 1 TAB PO (16:42)
== END 2024-05-29 16:49 | disposition home or self-care (01) ==
PROVIDERS: Family Medicine; Emergency Provider Student in an Organized Health Care Education/Training Program; PCP Emergency Medicine
DX: S63.502A Unspecified sprain of left wrist, initial encounter (principal); V89.2XXA Person injured in unspecified motor-vehicle accident, traffic, initial encounter; W22.11XA Striking against or struck by driver side automobile airbag, initial encounter; M25.562 Pain in left knee; M25.551 Pain in right hip; R07.89 Other chest pain; R82.90 Unspecified abnormal findings in urine; Z79.82 Long term (current) use of aspirin; E55.9 Vitamin D deficiency, unspecified; K21.9 Gastro-esophageal reflux disease without esophagitis
CPT/HCPCS: 71045; 73110; 73502; 73562; 81001; 81025; 87086; 93005; 99284; A9270